=== PATIENT | male | born 1955 | race Caucasian/White ===

== ENCOUNTER → 2023-10-04 06:34 | Day surgery (SDC) | payer OTHER, SELFPAY | LOC: GI 06:34 | PROVIDERS: ATTENDING PHYSICIAN Internal Medicine Gastroenterology | DX: Z12.11 Encounter for screening for malignant neoplasm of colon (principal); D12.3 Benign neoplasm of transverse colon; D12.4 Benign neoplasm of descending colon; K57.30 Diverticulosis of large intestine without perforation or abscess without bleeding; K64.0 First degree hemorrhoids; K29.50 Unspecified chronic gastritis without bleeding; K22.89 Other specified disease of esophagus; K31.89 Other diseases of stomach and duodenum; K31.7 Polyp of stomach and duodenum; T18.2XXA Foreign body in stomach, initial encounter; Y83.1 Surgical operation with implant of artificial internal device as the cause of abnormal reaction of the patient, or of later complication, without mention of misadventure at the time of the procedure | CPT/HCPCS: 45380; 43239; 88305; 88342 ==

== ENCOUNTER → 2023-12-17 14:59 | Outpatient (REF) | payer OTHER, SELFPAY | LOC: HWRAD 14:59 | PROVIDERS: ATTENDING PHYSICIAN Internal Medicine Critical Care Medicine; FAMILY PHYSICIAN Family Medicine | DX: R91.1 Solitary pulmonary nodule (principal) | CPT/HCPCS: 71250 ==

== ENCOUNTER 2024-04-05 17:42 | Emergency (ER) | payer OTHER, MEDICARE, SELFPAY ==
[2024-04-05 17:43] VITALS: BP 179/95
--- NOTE | 2024-04-05 18:21 | ED.GENMED ---
History of Present Illness
General
Chief Complaint: Male Genito-Urinary Symptoms
Time Seen by Provider: 04/05/24 18:11
History of Present Illness
History of Present Illness:
68-year-old male presents to the emergency department for evaluation of urinary urgency, pelvic pressure, urinary dribbling, and dysuria for the past 2 days. Pain is maximized immediately after completing urination for approximately 30 minutes.
Denies any hematuria, fever, chills, sweats, or flank pain. No nausea vomiting or diarrhea.
Past History
Past History
ED Past Medical History: HTN and Other (Migraine headaches, hypertension,vfib arrest-s/p aicd-removed)
ED Past Surgical History: Cardiac (Prior AICD) and Other (Left inguinal herniorrhaphy)
Social History
Tobacco: Non-smoker
Alcohol: Occasional
Drug: None
Personal:
Living: with family
Employment: Employed
Family History
Family History: Other (Noncontributory)
Review of Systems
Review of Systems
Allergies reviewed?: Yes
All Other Systems: ROS reviewed and negative except as documented in HPI and ROS
Phy Exam
Physical Exam
Physical Exam:
GEN: Well appearing, NAD, WDWN
HEENT: Oral mucosa moist, no scleral icterus
Cardiac: Regular rate
Lung: No respiratory distress, no tachypnea
Abdomen: Soft, nontender
MSK: No gross deformity or injuries
Skin: Good color, no pallor or jaundice, no rashes
Neuro: AO x3, moves all extremities freely
Psych: Calm, cooperative
Course
Orders/Labs/Results
Orders:
Orders
04/05/24 19:18
Urinalysis Reflex To Culture Urgent
Date Specimen was Collected: 04/05/24
Time Specimen was Collected: 19:17
Urine Microscopic Reflex Cult Urgent
Urine Culture Urgent
NICOLE Source: U
Specimen Description:
Date Specimen was Collected: 04/05/24
Time Specimen was Collected: 19:17
04/05/24 20:34
Cefdinir [Omnicef] 300 mg PO NOW STA
Abnormal Lab Results
04/05/24
19:18
Leukocyte Esterase Rfl 1+ A
(Negative)
Urine Bacteria (Reflex) Few A
(Negative)
Vital Signs
Initial and Last Documented VS:
Initial Vital Signs
Temp Pulse Resp BP Pulse Ox
98.5 F 69 16 179/95 98
04/05/24 17:43 04/05/24 17:43 04/05/24 17:43 04/05/24 17:43 04/05/24 17:43
Last Documented Vital Signs
Temp Pulse Resp BP Pulse Ox
98.5 F 66 18 126/78 96
04/05/24 17:43 04/05/24 20:00 04/05/24 20:00 04/05/24 20:00 04/05/24 20:00
MDM/Problems Addressed
MDM/Problems Addressed:
Although patient's urinalysis shows few bacteria and no obvious other signs of UTI, his symptoms are clearly suspicious for UTI. Likely prostatitis given the urgency and urinary dribbling, postvoid bladder scan shows no retention. Will treat him
with third-generation cephalosporin for a 14-day course on the presumption of prostatitis, urine culture pending
*Critical Care Note
Total Time (30-74mins, 75-104mins- exclusive of procedures): Not Applicable
ED Attending Note
-
Portions of this chart may have been created with voice recognition software.� Occasional wrong word or��sound alike� substitutions may have occurred due to the inherent limitations of voice recognition software.
Discharge Plan
Departure
Patient Disposition: Home (Routine Discharge)
Date of Disposition: 04/05/24
Time of Disposition: 20:35
Patient with high blood pressure during this ER visit?: No
Discharge Problem:
Acute prostatitis
Instructions: Prostatitis (DC)
Prescriptions:
New
cefdinir 300 mg capsule
300 mg PO Q12H 14 Days Qty: 28 0RF
No Action
multivitamin with folic acid [Tab-A-Andrew] 1 TABLET tablet
1 tab PO DAILY
acetaminophen [Tylenol] 325 mg Tablet
325 mg PO DAILYPRN PRN (Reason: mild pain)
labetalol 300 mg Tablet
150 mg PO BID
pantoprazole 40 mg Tablet,Delayed Release (Dr/Ec)
40 mg PO BID
cholecalciferol (vitamin D3) 250 mcg (10,000 unit) Tablet
250 mcg PO DAILY
amoxicillin-pot clavulanate 875-125 mg Tablet
1 tab PO BID Qty: 25 0RF
oxycodone 5 mg tablet
5 mg PO Q8H PRN (Reason: severe pain) Qty: 7 0RF
Referrals:
Kadeem Trammell, DO [Family Provider] -
Interventions
Interventions:
*Risk Screen - Suicide Last Done: 04/05/24 17:43
*General Assessment Last Done: 04/05/24 17:43
*Neglect/Abuse Screening Last Done: 04/05/24 17:43
ED- Fall Risk Assessment Last Done: 04/05/24 19:30
*ED COVID-19 Vaccine History Last Done: 04/05/24 19:30
*Nursing Disposition Last Done: 04/05/24 21:47
ED-Male Genitourinary Assessment Last Done: 04/05/24 19:30
Discharge Date and Time
Discharge Date/Time: 04/05/24 21:00
Print Language: URDU
[2024-04-05 20:00] VITALS: BP 126/78
[2024-04-05 20:07] LABS: Urine Albumin Negative (Neg - Trace); Urine Bilirubin Negative (Negative); Urine Character Clear (Clear); Urine Color Yellow; Urine Glucose Negative (Negative); Urine Ketone Negative (Negative); Urine Leukocyte 1+ (Negative); Urine Nitrite Negative (Negative); Urine Occult Blood Negative (Negative); Urine Urobilinogen Negative (Neg - 1+); Urine pH 6.5 (5.0-9.0)
[2024-04-05 20:32] LABS: Urine Bacteria Few (Negative); Urine Squamous Cell 0-2 /LPF (Few)
[2024-04-05 20:33] LABS: Urine Red Blood Cell 0-2 /HPF (0-2)
[2024-04-05] MEDS: OMNICEF 300 MG PO (21:16)
== END 2024-04-05 21:00 | disposition home or self-care (01) ==
LOC: EMR 17:42
PROVIDERS: Physician Assistant; EMERGENCY PHYSICIAN Emergency Medicine; FAMILY PHYSICIAN Family Medicine
DX: N41.0 Acute prostatitis (principal); I10 Essential (primary) hypertension; Z95.810 Presence of automatic (implantable) cardiac defibrillator
CPT/HCPCS: 99282; 81003; 81015; 87086

== ENCOUNTER → 2024-05-06 12:15 | Outpatient (REF) | payer OTHER, SELFPAY ==
[2024-05-06 16:39] LABS: % Basophils 0.7 % (0-2); % Eosinophils 1.7 % (0-6); % Immature Granulocytes 0.6 % (0-0.5); % Monocytes 10.9 % (1.7-9.3); % Neutrophils 55.1 % (42.2-75.2); Absolute Basophils 0.1 10^3/uL (0-0.2); Absolute Eosinophils 0.1 10^3/uL (0-0.7); Absolute Lymphocytes 2.2 10^3/uL (1.2-3.4); Absolute Monocytes 0.8 10^3/uL (0.1-0.6); Absolute Neutrophils 3.9 10^3/uL (1.4-6.5); Hematocrit 42.9 % (39.0-52.0); Hemoglobin 15.4 g/dL (13.0-18.0); Mean Corp Hgb Conc. 35.9 g/dL (33.0-37.0); Mean Corpuscular Hgb 30.6 pg (27.0-31.0); Mean Corpuscular Volume 85.1 fL (80.0-94.0); Nucleated Red Blood Cells % 0 % (-); Platelet Count 320 10^3/uL (130-400); Red Blood Cell Count 5.04 10^6/uL (4.70-6.10); Red Cell Dist. Width 12.3 % (11.5-14.5); White Blood Cell Count 7.2 10^3/uL (4.8-10.8)
[2024-05-06 16:47] LABS: ALT (SGPT) 23 U/L (0-50); AST (SGOT) 29 U/L (17-59); Alkaline Phosphatase 78 U/L (38-126); Amylase 51 U/L (30-110); Blood Urea Nitrogen 19 mg/dl (9-20); Carbon Dioxide 24 mmol/L (22-30); Chloride 98 mmol/L (98-107); Glucose 90 mg/dl (70-99); HDL Cholesterol 44 mg/dl; Lipase 64 U/L (23-300); Potassium 3.8 mmol/L (3.5-5.1); Sodium 139 mmol/L (135-145); Total Cholesterol 226 mg/dl (50-199); Total Protein 7.6 g/dl (6.3-8.2); eGFR > 60.00
[2024-05-06 16:50] LABS: Triglyceride 425 mg/dl (10-149)
[2024-05-06 17:13] LABS: LDL Cholesterol, Direct 126 mg/dl
[2024-05-06 17:17] LABS: PSA, Total - Screen 2.44 ng/ml (0.0-4.0); TSH Reflex To Free T4 1.12 uIU/ml (0.47-4.68)
[2024-05-07 08:21] LABS: Glycohemoglobin (HgbA1c) 5.1 % (4.0-5.6)
== END ==
LOC: HWLAB 12:15
PROVIDERS: ATTENDING PHYSICIAN Family Medicine
DX: R30.0 Dysuria (principal); Z00.01 Encounter for general adult medical examination with abnormal findings; R73.09 Other abnormal glucose; R10.12 Left upper quadrant pain
CPT/HCPCS: 36415; 80053; 80061; 82150; 83036; 83690; 83721; 84443; 85025; G0103

== ENCOUNTER 2024-12-24 13:26 | Inpatient (IN) | payer OTHER, SELFPAY ==
[2024-12-24 09:24] VITALS: BP 157/82
[2024-12-24 10:04] VITALS: BMI 33.1
[2024-12-24] MEDS: DILAUDID 1 MG IV ×5 (10:05→23:26)
--- NOTE | 2024-12-24 10:05 | ED.GENMED ---
History of Present Illness
General
Chief Complaint: Abdominal Pain
Time Seen by Provider: 12/24/24 09:50
History of Present Illness
History of Present Illness:
69-year-old male with prior history of diverticulitis and hypertension presenting for left-sided abdominal pain. Reports pain for the past 2 days. Feels that pain is consistent with prior episodes of diverticulitis, however feels worse than usual.
He took 2 doses of Augmentin that he had at home without any significant relief. Denies nausea or vomiting. Denies fever. Denies any bowel surgeries in the past. Denies any urinary complaints. Denies chest pain or difficulty breathing. Denies
additional acute medical complaints
Past History
Past History
ED Past Medical History: HTN and Other (Migraine headaches, hypertension,vfib arrest-s/p aicd-removed)
ED Past Surgical History: Cardiac (Prior AICD) and Other (Left inguinal herniorrhaphy)
Social History
Tobacco: Non-smoker
Alcohol: Occasional
Drug: None
Personal:
Living: with family
Employment: Employed
Family History
Family History: Other (Noncontributory)
Phy Exam
Physical Exam
Physical Exam:
General: Well-appearing, no clinical signs of dehydration, nontoxic and in no acute distress
HEENT: protecting airway
Neck: appears supple
CV: Normal heart rate, regular rhythm
Resp: No accessory muscle use
Abd: Soft and non-distended, focal tenderness to the left lower quadrant without rebound or guarding
Extremities: No deformities, no swelling
Neuro: alert, no focal neurologic deficit
: deferred
Rectal: deferred
Psych: Normal affect
Skin: Intact
Course
Orders/Labs/Results
Orders:
Orders
12/24/24 09:58
CT Abd/pelvis W Iv Cont Urgent
Comment:
Reason For Exam: LLQ pain, hx diverticulitis
HYDROmorphone [Dilaudid] 1 mg IV NOW STA
12/24/24 10:04
Complete Blood Count/With Diff Urgent
Comprehensive Metabolic Panel Urgent
Lipase Urgent
12/24/24 10:56
Urinalysis Reflex To Culture Urgent
Date Specimen was Collected: 12/24/24
Time Specimen was Collected: 10:52
12/24/24 12:26
HYDROmorphone [Dilaudid] 1 mg IV NOW STA
Abnormal Lab Results
12/24/24
10:04
WBC 11.0 H 10^3/uL
(4.8-10.8)
Absolute Neuts (auto) 8.6 H 10^3/uL
(1.4-6.5)
Absolute Monos (auto) 0.8 H 10^3/uL
(0.1-0.6)
Neutrophils % 78.0 H %
(42.2-75.2)
Lymphocytes % 13.1 L %
(20.5-51.1)
Glucose 121 H mg/dl
(70-99)
12/24/24 10:04
12/24/24 10:04
Vital Signs
Initial and Last Documented VS:
Initial Vital Signs
Temp Pulse Resp BP Pulse Ox
98.0 F 73 16 157/82 98
12/24/24 09:24 12/24/24 09:24 12/24/24 09:24 12/24/24 09:24 12/24/24 09:24
Last Documented Vital Signs
Temp Pulse Resp BP Pulse Ox
98.0 F 73 16 157/82 98
12/24/24 09:24 12/24/24 09:24 12/24/24 09:24 12/24/24 09:24 12/24/24 09:24
MDM/Problems Addressed
MDM/Problems Addressed:
69-year-old male with history of diverticulitis presenting for 2 days of left lower quadrant abdominal pain. Vital signs are significant for mild hypertension.
On exam patient resting comfortably, no acute distress, nontoxic. Focal tenderness to the left lower quadrant without rebound or guarding. Symptoms appear most consistent with acute diverticulitis, given prior history and location of pain.
Patient notes pain is worse than usual. For this reason we will proceed with laboratory analysis and CT imaging to ensure no complicating features. Patient requesting Dilaudid for pain. Will give.
12:50 -CT shows uncomplicated diverticulitis. Patient is still having significant pain, given additional dose of Dilaudid. Will admit for pain control, failure of outpatient therapy. Will start IV antibiotics.
*Critical Care Note
Total Time (30-74mins, 75-104mins- exclusive of procedures): Not Applicable
ED Attending Note
-
Portions of this chart may have been created with voice recognition software.� Occasional wrong word or��sound alike� substitutions may have occurred due to the inherent limitations of voice recognition software.
Discharge Plan
Departure
Prescriptions:
No Action
multivitamin with folic acid [Tab-A-Andrew] 1 TABLET tablet
1 tab PO DAILY
acetaminophen [Tylenol] 325 mg Tablet
325 mg PO DAILYPRN PRN (Reason: mild pain)
labetalol 300 mg Tablet
150 mg PO BID
pantoprazole 40 mg Tablet,Delayed Release (Dr/Ec)
40 mg PO BID
cholecalciferol (vitamin D3) 250 mcg (10,000 unit) Tablet
250 mcg PO DAILY
amoxicillin-pot clavulanate 875-125 mg Tablet
1 tab PO BID Qty: 25 0RF
oxycodone 5 mg tablet
5 mg PO Q8H PRN (Reason: severe pain) Qty: 7 0RF
cefdinir 300 mg capsule
300 mg PO Q12H 14 Days Qty: 28 0RF
Referrals:
Kadeem Trammell, DO [Family Provider] -
Interventions
Interventions:
*Risk Screen - Suicide Last Done: 12/24/24 09:24
*Neglect/Abuse Screening Last Done: 12/24/24 09:24
*ED COVID-19 Vaccine History Last Done: 12/24/24 12:37
UJ-Zfmzym-Uyupedxtgx Assessment Last Done: 12/24/24 12:37
Discharge Date and Time
Print Language: ARMENIAN
[2024-12-24 10:24] LABS: % Basophils 0.4 % (0-2); % Eosinophils 0.5 % (0-6); % Immature Granulocytes 0.3 % (0-0.5); % Lymphocytes 13.1 % (20.5-51.1); % Monocytes 7.7 % (1.7-9.3); Absolute Eosinophils 0.1 10^3/uL (0-0.7); Absolute Lymphocytes 1.4 10^3/uL (1.2-3.4); Absolute Monocytes 0.8 10^3/uL (0.1-0.6); Absolute Neutrophils 8.6 10^3/uL (1.4-6.5); Hematocrit 41.6 % (39.0-52.0); Hemoglobin 15.3 g/dL (13.0-18.0); Mean Corp Hgb Conc. 36.8 g/dL (33.0-37.0); Mean Corpuscular Hgb 30.8 pg (27.0-31.0); Mean Corpuscular Volume 83.7 fL (80.0-94.0); Mean Platelet Volume 8.6 fL (7.4-10.4); Nucleated Red Blood Cells % 0 % (-); Platelet Count 270 10^3/uL (130-400); Red Blood Cell Count 4.97 10^6/uL (4.70-6.10); Red Cell Dist. Width 12.4 % (11.5-14.5)
[2024-12-24 10:39] LABS: ALT (SGPT) 21 U/L (0-50); AST (SGOT) 22 U/L (17-59); Albumin 4.7 g/dl (3.5-5.0); Alkaline Phosphatase 71 U/L (38-126); Blood Urea Nitrogen 15 mg/dl (9-20); Calcium 9.9 mg/dl (8.4-10.2); Carbon Dioxide 27 mmol/L (22-30); Chloride 104 mmol/L (98-107); Estimated Creatinine Clearance 101 ml/min; Glucose 121 mg/dl (70-99); Lipase 53 U/L (23-300); Potassium 3.6 mmol/L (3.5-5.1); Sodium 140 mmol/L (135-145); Total Bilirubin 1.3 mg/dl (0.2-1.3); Total Protein 7.6 g/dl (6.3-8.2); eGFR > 60.00
[2024-12-24 11:11] LABS: Urine Albumin Negative (Neg - Trace); Urine Bilirubin Negative (Negative); Urine Character Clear (Clear); Urine Color Yellow; Urine Glucose Negative (Negative); Urine Ketone Negative (Negative); Urine Leukocyte Negative (Negative); Urine Nitrite Negative (Negative); Urine Occult Blood Negative (Negative); Urine Urobilinogen Negative (Neg - 1+); Urine pH 6.5 (5.0-9.0)
--- NOTE | 2024-12-24 13:06 | HPS.HSE ---
Family Physician
-
Family Physician: Kadeem Trammell
Chief Complaint
-
Abdominal pain
History of Present Illness
Patient 69 years old male with history of GI bleed, diverticulosis with several episodes of diverticulitis, hypertension, came into the hospital with abdominal pain. Patient tells me that he started having abdominal pain yesterday diffuse but
mostly in the left lower quadrant, moderate to severe intensity peaking 8 out of 10, constant, not associated with nausea or vomiting. Patient pain persisted and could not sleep well. When he started having the pain he felt this was similar to his
episodes of diverticulitis so he started taking Augmentin and he started altering his diet. He denies fevers or chills. He did have bowel movement yesterday normal stools at first and then followed by soft and watery stools. He denies any melena,
hematochezia, bright blood per rectum, or hematemesis. He has seen GI (Dr. Huff) as outpatient per patient report and he had a colonoscopy and an upper endoscopy just about a year ago from an episode of GI bleed. In the ER he had a white count
of 11, CT scan of the abdomen and pelvis consistent with diverticulitis of the distal descending colon. He was given antibiotics. He was referred to hospitalist service for further evaluation.
Medical History
Past Medical History
Past Medical History: Reports Other
Additional Past Medical History:
Hypertension
GI bleed 1 month ago requiring multiple units of PRBCs, IR embolization of left gastric artery 04/27
Diverticular Disease
V-Fib Arrest
Cervical DDD
Past Surgical History: Reports Other
Additional Past Surgical History:
AICD Placement / Removal
Lipoma Excision
Herniorrhaphy
Social History
Tobacco: Non-smoker
Alcohol: None
Drug: None
Personal:
Living: With Family
Family History
Family History: Not pertinent
Allergies / Home Medications
Allergies reflects when Allergies were last updated in [email or web address].
Home Medications with original date entered in [email or web address]
Allergy/Medication List:
Allergies
Allergy/AdvReac Type Severity Reaction Status Date / Time
Antihistamines Allergy Unknown Verified 12/24/24 09:25
hydroxyzine Allergy Unknown Verified 12/24/24 09:25
omeprazole [From Prilosec] Allergy Unknown - Verified 12/24/24 09:25
tolerates
pantoprazole
phenytoin sodium Allergy Unknown Verified 12/24/24 09:25
[From Dilantin]
promethazine Allergy Unknown Verified 12/24/24 09:25
tramadol Allergy Anaphylaxis Verified 12/24/24 09:25
Home Medications
multivitamin with folic acid 400 mcg tablet (Tab-A-Andrew) 1 tab PO DAILY Supplement 07/04/17
acetaminophen 325 mg tablet (Tylenol) 325 mg PO DAILYPRN PRN mild pain 04/02/23
labetalol 300 mg tablet 150 mg PO BID Blood Pressure 04/02/23
cholecalciferol (vitamin D3) 250 mcg (10,000 unit) tablet 250 mcg PO DAILY Supplement 05/13/23
pantoprazole 40 mg tablet,delayed release 40 mg PO BID Gastrointestinal Issue 05/13/23
amoxicillin 875 mg-potassium clavulanate 125 mg tablet 1 tab PO BID #25 tabs 05/22/23
oxycodone 5 mg tablet 5 mg PO Q8H PRN severe pain #7 tabs 05/22/23
cefdinir 300 mg capsule 300 mg PO Q12H 14 days #28 caps 04/05/24
Review of Systems
-
A 12 point ROS was completed and negative except as noted: Yes
Physical Exam
Vital Signs
Vital Signs
Temp Pulse Resp BP Pulse Ox
98.0 F 73 16 157/82 98
12/24/24 09:24 12/24/24 09:24 12/24/24 09:24 12/24/24 09:24 12/24/24 09:24
Physical exam:
General: Acutely ill
HEENT: Normocephalic, Atraumatic and dry Mucous Membranes
Respiratory: Clear to Auscultation; Negative Wheezes, Rales or Rhonchi
Cardiac: Regular Rhythm and S1/S2
GI: Soft, tender diffusely and mainly in the left lower quadrant and Nondistended
Musculoskeletal: No Clubbing, No Cyanosis and No Edema
Neuro: Awake, Alert and Oriented, no gross neurological deficits
Psych: Calm
Physical Exam
General: Other
Laboratory Results
-
12/24/24 10:04
12/24/24 10:04
Laboratory Results
Total Bilirubin 1.3 mg/dl (0.2-1.3) 12/24/24 10:04
AST 22 U/L (17-59) 12/24/24 10:04
ALT 21 U/L (0-50) 12/24/24 10:04
Alkaline Phosphatase 71 U/L (38-126) 12/24/24 10:04
Lipase 53 U/L (23-300) 12/24/24 10:04
Data Reviewed
-
CT Scan: Image Personally Visualized and interpreted
Lab Data: Labs Reviewed by me
Impression/Plan
-
IMPRESSION:
Patient is 69 years old male came into the hospital with abdominal pain and found to have acute recurrent diverticulitis. Patient at increased risk of increased of morbidity and mortality therefore he will need to be treated in the and monitor
accordingly.
PLAN:
Acute recurrent diverticulitis:
Failed outpatient treatment arguably since he only took 2 days worth of antibiotics.
Keep n.p.o.
Trial of clear liquid diet tomorrow if improving
Maintenance IV fluids
Continue antibiotics, IV ceftriaxone and IV metronidazole.
Pain control
Seen and reviewed CT scan of the abdomen pelvis with acute distal complicated diverticulitis.
Hypertension:
Continue home antihypertensives including labetalol 300 mg twice a day and indapamide 2.5 mg p.o. daily
Add holding parameters to his medications
Monitor blood pressure and adjust medications accordingly
History of cardiac arrest in the past:
Per records it was ventricular fibrillation but patient tells me after cardiology review it was determined to be side effect of medication, tramadol and cardiac device explanted except wires.
History of GI bleed:
History massive GI bleed 03/27 s/p IR embolization of left gastric artery followed by scope by GI.
DVT prophylaxis:
Lovenox SQ
CODE STATUS:
Full code
Time spent total 75 minutes
[2024-12-24] MEDS: ROCEPHIN 1000 MG IV (13:19)
[2024-12-24] MEDS: FLAGYL 500 MG 100 IV ×2 (13:20→20:01)
[2024-12-24 15:00] VITALS: BP 162/91
[2024-12-24] MEDS: LR 1000 IV (16:17)
[2024-12-24] MEDS: LOVENOX 40 MG SC (16:18)
[2024-12-24 16:21] VITALS: BMI 32.2
[2024-12-24] MEDS: TRANDATE 300 MG PO (20:01)
[2024-12-24 22:46] VITALS: BP 136/75
[2024-12-25] MEDS: DILAUDID 1 MG IV ×7 (02:43→22:34)
[2024-12-25] MEDS: FLAGYL 500 MG 100 IV ×3 (03:54→19:26)
[2024-12-25] MEDS: LR 1000 IV (05:44)
[2024-12-25 06:34] LABS: % Basophils 0.6 % (0-2); % Eosinophils 0.6 % (0-6); % Immature Granulocytes 0.3 % (0-0.5); % Monocytes 11.3 % (1.7-9.3); % Neutrophils 63.2 % (42.2-75.2); Absolute Basophils 0.1 10^3/uL (0-0.2); Absolute Eosinophils 0.1 10^3/uL (0-0.7); Absolute Lymphocytes 2.2 10^3/uL (1.2-3.4); Absolute Neutrophils 5.7 10^3/uL (1.4-6.5); Hematocrit 39.3 % (39.0-52.0); Hemoglobin 14.3 g/dL (13.0-18.0); Mean Corp Hgb Conc. 36.4 g/dL (33.0-37.0); Mean Corpuscular Hgb 30.8 pg (27.0-31.0); Mean Corpuscular Volume 84.5 fL (80.0-94.0); Mean Platelet Volume 8.8 fL (7.4-10.4); Nucleated Red Blood Cells % 0 % (-); Platelet Count 272 10^3/uL (130-400); Red Blood Cell Count 4.65 10^6/uL (4.70-6.10); Red Cell Dist. Width 12.4 % (11.5-14.5)
[2024-12-25 06:56] LABS: Blood Urea Nitrogen 12 mg/dl (9-20); Calcium 9.4 mg/dl (8.4-10.2); Carbon Dioxide 32 mmol/L (22-30); Chloride 103 mmol/L (98-107); Estimated Creatinine Clearance 88 ml/min; Glucose 98 mg/dl (70-99); Potassium 4.2 mmol/L (3.5-5.1); Sodium 140 mmol/L (135-145); eGFR > 60.00
[2024-12-25 07:00] VITALS: BP 149/81
[2024-12-25] MEDS: TRANDATE 300 MG PO ×2 (08:28→19:25)
[2024-12-25] MEDS: ROCEPHIN 1000 MG IV (08:28)
[2024-12-25] MEDS: LOZOL 2.5 MG PO (08:28)
[2024-12-25] MEDS: FLUSH (NSS) 1 FLUSH IV ×2 (08:28)
[2024-12-25] MEDS: STERILE WATER FOR INJECTION 10 ML IV (08:28)
--- NOTE | 2024-12-25 11:07 | W.PN.HOSP.TC ---
Today's Communication/Plan
-
Start diet. Antibiotics.
Assessment / Plan
Assessment / Plan
Physical exam:
General: Well Developed, Well Nourished and No Apparent Distress
HEENT: Normocephalic, Atraumatic and Moist Mucous Membranes
Respiratory: Clear to Auscultation; Negative Wheezes, Rales or Rhonchi
Cardiac: Regular Rhythm and S1/S2
GI: Soft, tender but much less than yesterday and Nondistended
Musculoskeletal: No Clubbing, No Cyanosis and No Edema
Neuro: Awake, Alert and Oriented
Psych: Calm
A/P:
Acute recurrent diverticulitis:
Improving
Start clear liquid diet today and advance as tolerated
Stop IV fluid
Continue antibiotics, IV ceftriaxone and IV metronidazole.
Hypertension:
Continue home antihypertensives including labetalol 300 mg twice a day and indapamide 2.5 mg p.o. daily
History of cardiac arrest in the past:
Per records it was ventricular fibrillation but patient tells me after cardiology review it was determined to be side effect of medication, tramadol and cardiac device explanted except wires.
History of GI bleed:
History massive GI bleed 03/27 s/p IR embolization of left gastric artery followed by scope by GI.
DVT prophylaxis:
Lovenox SQ
CODE STATUS:
Full code
Anticipated Discharge: 24 - 48 hours
Subjective/Interval History
-
Date of Service: December 25, 2024
Patient feels better in terms of his pain today. No nausea or vomiting. Afebrile
Objective Data
-
Labs:
Laboratory Results
12/25/24
06:11
WBC 9.0
Hgb 14.3
Hct 39.3
Plt Count 272
Sodium 140
Potassium 4.2
Chloride 103
Carbon Dioxide 32 H
BUN 12
Creatinine 0.9
Glucose 98
Calcium 9.4
Vital Signs:
Vital Signs
Temp Pulse Resp BP Pulse Ox
98.7 F 68 17 149/81 96
12/25/24 07:00 12/25/24 07:00 12/25/24 07:00 12/25/24 07:00 12/25/24 07:00
I&O
12/24/24 12/25/24 12/26/24
06:59 06:59 06:59
Output Total 300 / 300
Balance -300 / -300
--- NOTE | 2024-12-25 14:56 | CM ---
Patient seen bedside, initial assessment completed. Patient 69 years old male with history of GI bleed, diverticulosis with several episodes of diverticulitis, hypertension, came into the hospital with abdominal pain.
Patient resides w/ spouse in a [facility]- no steps. Independent in all areas, no DME reported. Denies SNF/HC hx reported. On IV abx.
Address, point of contact and insurance verified
PCP: Kadeem Trammell
Pharmacy: [facility]
Plan: Home, no needs anticipated
[2024-12-25 15:00] VITALS: BP 140/86
[2024-12-25] MEDS: LOVENOX 40 MG SC (16:16)
[2024-12-25 23:40] VITALS: BP 133/72
[2024-12-26] MEDS: DILAUDID 1 MG IV ×5 (01:36→14:51)
[2024-12-26] MEDS: FLAGYL 500 MG 100 IV ×2 (04:19→11:09)
[2024-12-26 07:00] VITALS: BP 178/89
[2024-12-26 07:11] LABS: % Basophils 0.9 % (0-2); % Eosinophils 1.6 % (0-6); % Immature Granulocytes 0.6 % (0-0.5); % Lymphocytes 27.5 % (20.5-51.1); % Monocytes 12.2 % (1.7-9.3); % Neutrophils 57.2 % (42.2-75.2); Absolute Basophils 0.1 10^3/uL (0-0.2); Absolute Eosinophils 0.1 10^3/uL (0-0.7); Absolute Lymphocytes 1.9 10^3/uL (1.2-3.4); Absolute Monocytes 0.9 10^3/uL (0.1-0.6); Hematocrit 40.4 % (39.0-52.0); Hemoglobin 14.5 g/dL (13.0-18.0); Mean Corp Hgb Conc. 35.9 g/dL (33.0-37.0); Mean Corpuscular Hgb 30.7 pg (27.0-31.0); Mean Corpuscular Volume 85.4 fL (80.0-94.0); Mean Platelet Volume 8.9 fL (7.4-10.4); Nucleated Red Blood Cells % 0 % (-); Platelet Count 269 10^3/uL (130-400); Red Blood Cell Count 4.73 10^6/uL (4.70-6.10); Red Cell Dist. Width 12.3 % (11.5-14.5); White Blood Cell Count 6.9 10^3/uL (4.8-10.8)
[2024-12-26] MEDS: FLUSH (NSS) 1 FLUSH IV ×2 (07:40→07:41)
[2024-12-26 07:41] LABS: Blood Urea Nitrogen 12 mg/dl (9-20); Calcium 9.2 mg/dl (8.4-10.2); Carbon Dioxide 26 mmol/L (22-30); Chloride 104 mmol/L (98-107); Estimated Creatinine Clearance 99 ml/min; Glucose 92 mg/dl (70-99); Potassium 3.7 mmol/L (3.5-5.1); Sodium 140 mmol/L (135-145); eGFR > 60.00
[2024-12-26] MEDS: STERILE WATER FOR INJECTION 10 ML IV (07:41)
[2024-12-26] MEDS: TRANDATE 300 MG PO (07:41)
[2024-12-26] MEDS: ROCEPHIN 1000 MG IV (07:41)
[2024-12-26] MEDS: LOZOL 2.5 MG PO (07:41)
[2024-12-26 11:00] VITALS: BP 141/80
--- NOTE | 2024-12-26 12:02 | W.PN.HOSP.TC ---
Addendum entered and electronically signed by Juan Carlos Olvera MD 12/26/24 16:47:
Patient improving and wants to go home. Came back and reevaluated the patient. If able to tolerate low residue diet he can go home tonight-discharge paperwork ready.
Original Note:
Today's Communication/Plan
-
Antibiotics. Advance diet
Assessment / Plan
Assessment / Plan
Physical exam:
General: Well Developed, Well Nourished and No Apparent Distress
HEENT: Normocephalic, Atraumatic and Moist Mucous Membranes
Respiratory: Clear to Auscultation; Negative Wheezes, Rales or Rhonchi
Cardiac: Regular Rhythm and S1/S2
GI: Soft, tender but much less than yesterday and Nondistended
Musculoskeletal: No Clubbing, No Cyanosis and No Edema
Neuro: Awake, Alert and Oriented
Psych: Calm
A/P:
Acute recurrent diverticulitis:
Improving
Advance to full liquid diet today and might be able to advance either later this evening or tomorrow
Off IV fluid
Continue antibiotics, IV ceftriaxone and IV metronidazole.
Hypertension:
Continue home antihypertensives including labetalol 300 mg twice a day and indapamide 2.5 mg p.o. daily
Add IV hydralazine as needed
History of cardiac arrest in the past:
Per records it was ventricular fibrillation but patient tells me after cardiology review it was determined to be side effect of medication, tramadol and cardiac device explanted except wires.
History of GI bleed:
History massive GI bleed 03/27 s/p IR embolization of left gastric artery followed by scope by GI.
DVT prophylaxis:
Lovenox SQ
CODE STATUS:
Full code
Anticipated Discharge: Within 24 hours
Subjective/Interval History
-
Date of Service: December 26, 2024
Patient still having pain but continues to improve. Afebrile
Objective Data
-
Labs:
Laboratory Results
12/26/24
05:54
WBC 6.9
Hgb 14.5
Hct 40.4
Plt Count 269
Sodium 140
Potassium 3.7
Chloride 104
Carbon Dioxide 26
BUN 12
Creatinine 0.8
Glucose 92
Calcium 9.2
Vital Signs:
Vital Signs
Temp Pulse Resp BP Pulse Ox
98.1 F 62 16 141/80 98
12/26/24 11:00 12/26/24 11:00 12/26/24 11:00 12/26/24 11:00 12/26/24 11:00
I&O
12/25/24 12/26/24 12/27/24
06:59 06:59 06:59
Intake Total 680 / 680
Output Total 300 / 300 400 / 400
Balance -300 / -300 -400 / -400 680 / 680
[2024-12-26 15:00] VITALS: BP 154/83
--- NOTE | 2024-12-26 15:36 | W.DCSUMMARY ---
Discharge Summary
Discharge Data
Date of Admission: 12/24/24
Date of Discharge: 12/26/24
Total time spent discharging patient (in min): 33
-
Pending Results: No
Hospital Course
Patient is 69 years old male with past medical history of hypertension, diverticular disease in the past, presented to the hospital with abdominal pain and acute recurrent diverticulitis. Patient was started on IV antibiotics and IV fluids and kept
NPO. He was started on diet the following day and his fluids were discontinued. He has been advancing his diet slowly and he has noticed improvement clinically. Patient is hemodynamically stable, able to tolerate low residue diet and eager to go
home today. Patient will be discharged in stable condition today.
Discharge duration: 33 minutes
Discharge Plan
-
Patient Disposition: Home (Routine Discharge)
Discharge Diagnosis/Procedures: Acute uncomplicated diverticulitis
Diet: Low Cholesterol and Low Residue
Activity: As tolerated
Blood Work: Please PCP to order CBC, BMP within 1 week
Referrals:
Kadeem Trammell, DO [Family Provider] - in less than 1 week
Prescriptions:
Continued
multivitamin with folic acid [Tab-A-Andrew] 1 TABLET tablet
1 tab PO DAILY
acetaminophen [Tylenol] 325 mg Tablet
325 mg PO DAILYPRN PRN (Reason: mild pain)
labetalol 300 mg Tablet
300 mg PO BID
indapamide 2.5 mg Tablet
2.5 mg PO DAILY
cholecalciferol (vitamin D3) [Vitamin D3] 25 mcg (1,000 unit) Tablet
25 mcg PO DAILY
Discharge Date and Time
Print Language: MACEDONIAN
--- NOTE | 2024-12-26 16:09 | CM ---
Home no needs.
Plan; Home no needs.
[2024-12-26] MEDS: AUGMENTIN 875 MG/125 MG 1 TABLET PO (17:03)
== END 2024-12-26 18:12 | disposition home or self-care (01) | DRG 392 ==
LOC: 4 WEST ACU 13:26
PROVIDERS: ADMITTING PHYSICIAN Hospitalist; EMERGENCY PHYSICIAN Student in an Organized Health Care Education/Training Program; FAMILY PHYSICIAN Family Medicine
DX: K57.32 Diverticulitis of large intestine without perforation or abscess without bleeding (principal); I10 Essential (primary) hypertension; G43.909 Migraine, unspecified, not intractable, without status migrainosus; M50.30 Other cervical disc degeneration, unspecified cervical region; Z86.74 Personal history of sudden cardiac arrest; Z87.19 Personal history of other diseases of the digestive system; Z88.5 Allergy status to narcotic agent; Z88.8 Allergy status to other drugs, medicaments and biological substances
CPT/HCPCS: 74177; 80048; 80053; 81003; 83690; 85025; 96365; 96375; 96376; 99284; Q9967

== ENCOUNTER 2025-05-14 11:05 | Inpatient (IN) | payer OTHER, MEDICARE, SELFPAY ==
[2025-05-13 18:16] VITALS: BP 129/76
[2025-05-13 18:31] LABS: Hematocrit 41.7 % (39.0-52.0); Hemoglobin 14.9 g/dL (13.0-18.0); Mean Corp Hgb Conc. 35.7 g/dL (33.0-37.0); Mean Corpuscular Volume 84.4 fL (80.0-94.0); Nucleated Red Blood Cells % 0 % (-); Platelet Count 294 10^3/uL (130-400); Red Cell Dist. Width 12.5 % (11.5-14.5)
[2025-05-13 18:50] LABS: ALT (SGPT) 21 U/L (0-50); AST (SGOT) 22 U/L (17-59); Albumin 4.9 g/dl (3.5-5.0); Alkaline Phosphatase 77 U/L (38-126); Blood Urea Nitrogen 17 mg/dl (9-20); Calcium 9.5 mg/dl (8.4-10.2); Carbon Dioxide 29 mmol/L (22-30); Chloride 99 mmol/L (98-107); Glucose 110 mg/dl (70-99); Lipase 62 U/L (23-300); Potassium 3.6 mmol/L (3.5-5.1); Sodium 137 mmol/L (135-145); Total Protein 7.7 g/dl (6.3-8.2); eGFR > 60.00
--- NOTE | 2025-05-13 20:32 | ED.GENMED ---
History of Present Illness
General
Chief Complaint: Abdominal Pain
Source: patient
Exam Limitations: none
Time Seen by Provider: 05/13/25 20:25
Nursing documentation reviewed up to this point in time: agreed with
History of Present Illness
History of Present Illness:
Patient to ED with report of worsening lower abd pain. He has a history of diverticulitis and reports his symptoms are consistent with symptoms in the past. He started self o AUgmentin on Saturday. He has had 4 doses without imrovement. Brought
self to ED for eval. Denies fever/chills
Past History
Past History
ED Past Medical History: HTN and Other (Migraine headaches, hypertension,vfib arrest-s/p aicd-removed)
ED Past Surgical History: Cardiac (Prior AICD) and Other (Left inguinal herniorrhaphy)
Social History
Tobacco: Non-smoker
Alcohol: Occasional
Drug: None
Personal:
Living: with family
Employment: Employed
Family History
Family History: Other (Noncontributory)
Review of Systems
Review of Systems
Allergies reviewed?: Yes
All Other Systems: ROS reviewed and negative except as documented in HPI and ROS
Constitutional: Reports no symptoms
EENT: Reports no symptoms
Respiratory: Reports no symptoms
Cardiac: Reports no symptoms
ABD/GI: Reports abdominal pain (lower abd pain )
: Reports no symptoms
Musculoskeletal: Reports no symptoms
Skin: Reports no symptoms
Neurological: Reports no symptoms
Psychiatric: Reports no symptoms
Phy Exam
General Physical Exam
General Presentation: moderate distress
General age: appears stated age
General Skin: warm and dry
General Habitus: normal
General Mental: alert
Cardiovascular Exam
Cardiovascular Exam: regular rate/rhythm and no edema
Gastrointestinal Exam
Gastrointestinal Exam: normal bowel sounds, soft, no organomegaly, no pulsatile mass and non distended
Palpation: left upper quadrant: No tenderness, left lower quadrant: Moderate tenderness, right upper quadrant: No tenderness and right lower quadrant: Mild tenderness
Musculoskeletal Exam
Musculoskeletal Exam: full ROM and neuro vasc intact
Skin Exam
Skin Exam: normal color, warm/dry and no rash
Psychiatric Exam
Psychiatric Exam: normal mood/affect
Course
Orders/Labs/Results
Orders:
Orders
05/13/25 18:25
Complete Blood Count/With Diff Urgent
Comprehensive Metabolic Panel Urgent
Lipase Urgent
05/13/25 20:31
CT Abd/pelvis W Iv Cont Urgent
Comment:
Reason For Exam: lower abd pain
0.9% Sodium Chloride 1000 ml [Nss] 1,000 ml IV BOLUS
HYDROmorphone [Dilaudid] 1 mg IV NOW STA
05/13/25 22:13
CefTRIAXone [Rocephin] 2,000 mg IV NOW STA
MetroNIDAZOLE 500 MG/100 ML [Flagyl 500 mg] 100 ml IV NOW
Abnormal Lab Results
05/13/25
18:25
WBC 14.0 H 10^3/uL
(4.8-10.8)
Abs Immat Gran (auto) 0.1 H 10^3/uL
(0-0.05)
Absolute Neuts (auto) 10.1 H 10^3/uL
(1.4-6.5)
Absolute Monos (auto) 1.3 H 10^3/uL
(0.1-0.6)
Lymphocytes % 17.7 L %
(20.5-51.1)
Monocytes % 9.4 H %
(1.7-9.3)
Glucose 110 H mg/dl
(70-99)
Total Bilirubin 1.5 H mg/dl
(0.2-1.3)
05/13/25 18:25
05/13/25 18:25
Vital Signs
Initial and Last Documented VS:
Initial Vital Signs
Temp Pulse Resp BP Pulse Ox
98.8 F 75 20 129/76 96
05/13/25 18:16 05/13/25 18:16 05/13/25 18:16 05/13/25 18:16 05/13/25 18:16
Last Documented Vital Signs
Temp Pulse Resp BP Pulse Ox
98.8 F 72 19 129/76 97
05/13/25 18:16 05/13/25 22:00 05/13/25 22:00 05/13/25 18:16 05/13/25 22:00
*Radiology
Radiology exam reviewed: radiology read reviewed
*Pulse Oximetry
SaO2: 96
Oxygen Mode of Delivery: Room air
Patient hypoxic: no
*Critical Care Note
Total Time (30-74mins, 75-104mins- exclusive of procedures): Not Applicable
Update Note
Update Note:
Patient to ED with report of worsening lower abd. pain despite 4 doses of augmentin for suspected diverticulitis. VSS, he remains afebrile. Labs reviewed, WBC 14.[address] report reviewed, confirms diverticulitis. No abscess, or perforation.
IV antibiotics started in dept. Resting comfortably after IV dilaudid. will admit to hospitalist.
ED Attending Note
-
Portions of this chart may have been created with voice recognition software.� Occasional wrong word or��sound alike� substitutions may have occurred due to the inherent limitations of voice recognition software.
Discharge Plan
Departure
Patient Disposition: Admit
Date of Disposition: 05/13/25
Time of Disposition: 22:14
Presentation/result/management discussed w/ accepting MD/DO: Hospitalist
Condition: Fair
Covid-19: Not Applicable
Discharge Problem:
Diverticulitis
Prescriptions:
No Action
multivitamin with folic acid [Tab-A-Andrew] 1 TABLET tablet
1 tab PO DAILY
acetaminophen [Tylenol] 325 mg Tablet
325 mg PO DAILYPRN PRN (Reason: mild pain)
labetalol 300 mg Tablet
300 mg PO BID
indapamide 2.5 mg Tablet
2.5 mg PO DAILY
cholecalciferol (vitamin D3) [Vitamin D3] 25 mcg (1,000 unit) Tablet
25 mcg PO DAILY
amoxicillin-pot clavulanate 875-125 mg Tablet
1 tab PO Q12 14 Days Qty: 28 0RF
Referrals:
Kadeem Trammell DO [Family Provider, Family Practice]
Interventions
Interventions:
*Risk Screen - Suicide Last Done: 05/13/25 18:16
*General Assessment Last Done: 05/13/25 18:16
*Neglect/Abuse Screening Last Done: 05/13/25 18:16
*ED- Fall Risk Assessment Last Done: 05/13/25 20:38
*ED COVID-19 Vaccine History Last Done: 05/13/25 20:38
*ED Influenza Vaccine History Last Done: 05/13/25 20:38
MQ-Drtyes-Mohjhoyigi Assessment Last Done: 05/13/25 20:26
Discharge Date and Time
Print Language: LAO
[2025-05-13 20:38] VITALS: BMI 32.5
[2025-05-13] MEDS: NSS 1000 IV ×2 (20:57→23:54)
[2025-05-13] MEDS: DILAUDID 1 MG IV (20:58)
[2025-05-13] MEDS: ROCEPHIN 2000 MG IV (22:22)
--- NOTE | 2025-05-13 22:23 | HPS.HSE ---
Family Physician
-
Family Physician: Kadeem Trammell
Chief Complaint
-
abdominal pain
History of Present Illness
This is a 69-year-old with past medical history significant for recurrent diverticulitis, hypertension presenting to the emergency department with acute abdominal pain.
Patient reported that symptoms began last abdominal pain localized to the left lower quadrant that started on Saturday evening. He ate given that he has a history of recurrent diverticulitis patient started Augmentin and has taken 4 doses every 12
hours up until this morning. Despite the Augmentin and self-imposed bowel rest patient continued to have significant abdominal pain that was worsening over this time. Denies having any fevers or chills. Denies any diarrhea nausea or vomiting
except for the first day when he had 1 episode of loose stools. He has no recent sick contacts.
In the emergency department he was afebrile, blood pressure was at 130/76 with a pulse of 72 and was satting 98% on room air.
White count was 14, hemogram platelets were normal. Electrolytes, BUN, creatinine were normal.
CT of the abdomen pelvis showing changes in the left anterolateral pelvis at the junction of the distal descending colon and the sigmoid colon, focal area of diverticulitis with prominent anterior diverticulum. No evidence for drainable abscess. No
evidence for free intraperitoneal air.
Medical History
Past Medical History
Past Medical History: Reports Other
Additional Past Medical History:
Hypertension
GI bleed 1 month ago requiring multiple units of PRBCs, IR embolization of left gastric artery 04/27
Diverticular Disease
V-Fib Arrest
Cervical DDD
Past Surgical History: Reports Other
Additional Past Surgical History:
AICD Placement / Removal
Lipoma Excision
Herniorrhaphy
Social History
Tobacco: Non-smoker
Alcohol: None
Drug: None
Personal:
Living: With Family
Family History
Family History: Not pertinent
Allergies / Home Medications
Allergies reflects when Allergies were last updated in [facility].
Home Medications with original date entered in [facility]
Allergy/Medication List:
Allergies
Allergy/AdvReac Type Severity Reaction Status Date / Time
Antihistamines Allergy Unknown Verified 12/24/24 09:25
hydroxyzine Allergy Unknown Verified 12/24/24 09:25
omeprazole [From Prilosec] Allergy Unknown - Verified 12/24/24 09:25
tolerates
pantoprazole
phenytoin sodium Allergy Unknown Verified 12/24/24 09:25
[From Dilantin]
promethazine Allergy Unknown Verified 12/24/24 09:25
tramadol Allergy Anaphylaxis Verified 12/24/24 09:25
Home Medications
multivitamin with folic acid 400 mcg tablet (Tab-A-Andrew) 1 tab PO DAILY Supplement 07/04/17
acetaminophen 325 mg tablet (Tylenol) 325 mg PO DAILYPRN PRN mild pain 04/02/23
labetalol 300 mg tablet 150 mg PO BID Blood Pressure 04/02/23
cholecalciferol (vitamin D3) 250 mcg (10,000 unit) tablet 250 mcg PO DAILY Supplement 05/13/23
pantoprazole 40 mg tablet,delayed release 40 mg PO BID Gastrointestinal Issue 05/13/23
amoxicillin 875 mg-potassium clavulanate 125 mg tablet 1 tab PO BID #25 tabs 05/22/23
oxycodone 5 mg tablet 5 mg PO Q8H PRN severe pain #7 tabs 05/22/23
cefdinir 300 mg capsule 300 mg PO Q12H 14 days #28 caps 04/05/24
Review of Systems
-
Constitutional: Reports No Symptoms
EENT: Reports No Symptoms
Respiratory: Reports No Symptoms
Cardiac: Reports No Symptoms
Abdomen/GI: Reports Abdominal Pain
: Reports No Symptoms
Musculoskeletal: Reports No Symptoms
Skin: Reports No Symptoms
Neurological: Reports No Symptoms
Endocrine: Reports No Symptoms
Hematologic/Lymphatic: Reports No Symptoms
Psych: Reports No Symptoms
Physical Exam
Vital Signs
Vital Signs
Temp Pulse Resp BP Pulse Ox
98.8 F 72 19 129/76 97
05/13/25 18:16 05/13/25 22:00 05/13/25 22:00 05/13/25 18:16 05/13/25 22:00
Physical Exam
General: Well Developed, Well Nourished and No Apparent Distress
HEENT: NormoCephalic, Moist mucous membranes and Atraumatic
Respiratory: Clear
Cardiac: S1/S2 and Regular Rhythm; No Murmur or Rub
GI: Soft, Non Distended and Normal Bowel Sounds; No Organomegaly
Rectal: Deferred by Provider
Musculoskeletal: No Clubbing, No Cyanosis and No Edema
Skin: No Rash
Neuro: Nonfocal/grossly intact
Laboratory Results
-
05/13/25 18:25
05/13/25 18:25
Laboratory Results
Total Bilirubin 1.5 mg/dl (0.2-1.3) H 05/13/25 18:25
AST 22 U/L (17-59) 05/13/25 18:25
ALT 21 U/L (0-50) 05/13/25 18:25
Alkaline Phosphatase 77 U/L (38-126) 05/13/25 18:25
Lipase 62 U/L (23-300) 05/13/25 18:25
Data Reviewed
-
CT Scan: Report Reviewed by me
Lab Data: Labs Reviewed by me
Old Records: Reviewed
Impression/Plan
-
IMPRESSION:
69-year-old with past medical history significant for hypertension and a prior history of recurrent sigmoid diverticulitis presents to the emergency department with abdominal pain and was found to have acute diverticulitis with leukocytosis. He is
otherwise nontoxic-appearing, hemodynamically stable and in no acute distress. CT scan confirms sigmoid diverticulitis without any perforation and abscess extraoral without complication such as fractures.
PLAN:
Acute diverticulitis -recurrent diverticulitis
-Admit to MedSurg observation
-N.p.o. for now, advance diet as tolerated in a.m.
-Without systemic findings for now, IV ceftriaxone and Flagyl
-Serial examinations
-IV fluids, pain control and antiemetics
-Follow-up with outpatient colorectal
Hypertension
-Continue with patient's labetalol with hold parameters
� Continue patient's indapamide
DVT prophylaxis�lovenox sq
CODE STATUS�full code
[2025-05-13] MEDS: FLAGYL 500 MG 100 IV (22:32)
[2025-05-13] MEDS: DILAUDID 0.5 MG IV (23:22)
[2025-05-14 00:05] VITALS: BP 146/80; BMI 32.0
[2025-05-14] MEDS: DILAUDID 0.5 MG IV ×4 (01:33→09:10)
[2025-05-14] MEDS: FLAGYL 500 MG 100 IV ×3 (05:27→22:38)
[2025-05-14] MEDS: OFIRMEV 100 IV (06:08)
[2025-05-14 07:14] VITALS: BP 116/64
--- NOTE | 2025-05-14 07:24 | PTCARENOTE ---
pt abd pain 05/14 - s/w QA TEST LEAD Naeem RE: pain management. see OCT.
[2025-05-14 08:25] LABS: Hematocrit 37.2 % (39.0-52.0); Hemoglobin 13.0 g/dL (13.0-18.0); Mean Corp Hgb Conc. 34.9 g/dL (33.0-37.0); Mean Corpuscular Volume 85.7 fL (80.0-94.0); Platelet Count 257 10^3/uL (130-400); Red Cell Dist. Width 12.4 % (11.5-14.5)
[2025-05-14 08:48] LABS: Blood Urea Nitrogen 11 mg/dl (9-20); Calcium 8.6 mg/dl (8.4-10.2); Carbon Dioxide 29 mmol/L (22-30); Chloride 102 mmol/L (98-107); Estimated Creatinine Clearance 99 ml/min; Glucose 95 mg/dl (70-99); Magnesium 2.0 mg/dl (1.6-2.3); Potassium 3.6 mmol/L (3.5-5.1); Sodium 138 mmol/L (135-145); eGFR > 60.00
[2025-05-14] MEDS: TRANDATE 300 MG PO ×2 (09:11→19:58)
--- NOTE | 2025-05-14 09:27 | CON.CRS ---
Consultation
-
Date/Time Consultation Requested: 05/14/2025, 08:33
Date/Time Consultation Performed: 05/14/2025, 10:00
Requesting Provider: Doretha Suazo MD
Performing Provider: Alex Whitt
Reason for Consultation: diverticulitis
Medical History
-
Chief Complaint: abdominal pain
History of Present Illness:
69-year-old male with a past medical history of previous diverticulitis, presents to [facility] complaining of left lower quadrant abdominal pain and 1 episode of loose stools. He has had many diverticulitis attacks in the past. He was seen
by Dr. Pepe in 2016 with a diagnosis of 3-5 prior attacks of sigmoid diverticulitis at that time and was admitted on IV Zosyn. Subsequently he had a CT in December 2021 that showed moderate acute diverticulitis in the mid to distal sigmoid colon
(treated as an outpatient), and another in December 2024 that showed acute uncomplicated diverticulitis of distal descending colon (admitted in the hospital for 3 days). The most recent CT performed yesterday showed a focal area of diverticulitis in the
left anterior lateral pelvis at the junction of the distal descending colon and sigmoid colon with no evidence for drainable abscess and no evidence of free intraperitoneal air.
His WBC yesterday was 14.0 and is 9.9 today. He has remained afebrile and his vitals have been normal. His last colonoscopy was by Dr. Huff in 2023 which showed two 2 mm polyps in the descending colon and in the
transverse colon, diverticulosis in the sigmoid colon and in the descending colon, and internal hemorrhoids. Given his recurrent attacks, we have been consulted for further surgical recommendations.
Past Medical History
Past Medical History: Other (Hypertension, GI bleed 1 month ago requiring multiple units of PRBCs, IR embolization of left gastric artery, Diverticular Disease, V-Fib Arrest, Cervical DDD)
Past Surgical History: Other (AICD Placement / Removal, Lipoma Excision, Herniorrhaphy)
Social History
Tobacco: Non-Smoker
Alcohol: None
Drug: None
Personal:
Family History
Family History: Reviewed & Not Pertinent
Allergies / Home Medications
Allergy/AdvReac Type Severity Reaction Status Date / Time
Antihistamines Allergy Unknown Verified 05/13/25 18:20
hydroxyzine Allergy Unknown Verified 05/13/25 18:20
NSAIDS (Non-Steroidal Allergy Unknown Verified 05/14/25 02:38
Anti-Inflamma
omeprazole (From Prilosec) Allergy Unknown - Verified 05/13/25 18:20
tolerates
pantoprazole
phenytoin sodium (From Allergy Unknown Verified 05/13/25 18:20
Dilantin)
promethazine Allergy Unknown Verified 05/13/25 18:20
tramadol Allergy Anaphylaxis Verified 05/13/25 18:20
�Medication �Instructions �Recorded �Confirmed �Type
multivitamin with folic acid 400 1 tab PO DAILY Supplement 07/04/17 05/13/25 History
mcg tablet (Tab-A-Andrew)
acetaminophen 325 mg tablet 325 mg PO DAILYPRN PRN mild pain 04/02/23 05/13/25 History
(Tylenol)
labetalol 300 mg tablet 300 mg PO BID Blood Pressure 04/02/23 05/13/25 History
indapamide 2.5 mg tablet 2.5 mg PO DAILY Fluid 12/24/24 05/13/25 History
Retention/Swelling
amoxicillin 875 mg-potassium 1 tab PO Q12 14 days #28 tabs 12/26/24 05/13/25 Rx
clavulanate 125 mg tablet
Review of Systems
-
History Source: Patient
Abdomen/GI: Abdominal Pain and Diarrhea
A 10 point review of systems was completed, and was negative except as per HPI.
Physical Exam
Vital Signs
Temp 97.2 F 05/14/25 07:14
Pulse 62 05/14/25 09:11
Resp Rate 18 05/14/25 07:14
Blood pressure 116/64 05/14/25 09:11
SaO2 98 05/14/25 07:14
05/13/25 05/14/25 05/15/25
06:59 06:59 06:59
Actual Weight 95.368 kg
Body Mass Index (BMI) 32.0
Lab Results / Allergies
05/14/25 07:31
05/14/25 07:31
WBC 9.9 10^3/uL (4.8-10.8) 05/14/25 07:31
Hgb 13.0 g/dL (13.0-18.0) 05/14/25 07:31
Hct 37.2 % (39.0-52.0) L 05/14/25 07:31
Plt Count 257 10^3/uL (130-400) 05/14/25 07:31
Abs Immat Gran (auto) 0.1 10^3/uL (0-0.05) H 05/13/25 18:25
Neutrophils % 71.7 % (42.2-75.2) 05/13/25 18:25
Allergy/AdvReac Type Severity Reaction Status Date / Time
Antihistamines Allergy Unknown Verified 05/13/25 18:20
hydroxyzine Allergy Unknown Verified 05/13/25 18:20
NSAIDS (Non-Steroidal Allergy Unknown Verified 05/14/25 02:38
Anti-Inflamma
omeprazole (From Prilosec) Allergy Unknown - Verified 05/13/25 18:20
tolerates
pantoprazole
phenytoin sodium (From Allergy Unknown Verified 05/13/25 18:20
Dilantin)
promethazine Allergy Unknown Verified 05/13/25 18:20
tramadol Allergy Anaphylaxis Verified 05/13/25 18:20
Physical Exam
General: Well Developed, Well Nourished and No Apparent Distress
GI: Soft and Non Tender
Skin: Warm and Dry
Neuro: AO x 3
Psych: Calm
Data Reviewed
-
CT Scan: Image Personally Visualized and interpreted, Report Reviewed by me and Discussed with Patient
Labs: Labs Reviewed by me, Discussed with Physician and Discussed with Patient
Old Records: Reviewed
Assessment / Plan
-
Assessment:69 yo male with a past medical history of multiple attacks of sigmoid diverticulitis, presents to [facility] with LLQ abdominal pain and found to have uncomplicated sigmoid diverticulitis on CT
Plan:
-Trend WBC/CRP
-Diet: advance to clears
-Continue IV antibiotics
-No plans for OR at this time. If he worsens, he will require a colectomy with colostomy creation.
-Will need to discuss elective surgery with Dr. Pepe as an outpatient, given his number of attacks.
--- NOTE | 2025-05-14 10:54 | W.PN.HOSP.TC ---
Today's Communication/Plan
-
see outlined plan below
Assessment / Plan
Assessment / Plan
Assessment:
Acute distal colon/sigmoid diverticulitis
- Colonoscopy 10/2023: Diverticulosis in the sigmoid colon and in the descending colon
- NPO, consider clears by evening if pain more controlled. IVF for now
- pain control, anti-emetics
- continue Rocephin, Flagyl day 1
- CRS evaluation
Essential HTN
- continue labetalol
- hold indapamide - not on formulary per pharmacy
GI bleed 1 month ago requiring multiple units of PRBCs, IR embolization of left gastric artery 04/27
V-Fib Arrest s/p ICD
Cervical DDD
DVT ppx: Lovenox
Code: Full
Anticipated Discharge: 24 - 48 hours
Subjective/Interval History
-
Date of Service: May 14, 2025
reports 03/14 LLQ pain, no nausea/vomiting
no fever/chills
Objective Data
-
Labs:
Laboratory Results
05/14/25
07:31
WBC 9.9
Hgb 13.0
Hct 37.2 L
Plt Count 257
Sodium 138
Potassium 3.6
Chloride 102
Carbon Dioxide 29
BUN 11
Creatinine 0.8
Glucose 95
Calcium 8.6
Vital Signs:
Vital Signs
Temp Pulse Resp BP Pulse Ox
97.2 F 62 18 116/64 98
05/14/25 07:14 05/14/25 09:11 05/14/25 07:14 05/14/25 09:11 05/14/25 07:14
I&O
05/13/25 05/14/25 05/15/25
06:59 06:59 06:59
Intake Total 1000 / 1000
Balance 999 / 999
Physical Exam
-
General: Pain
HEENT: Normocephalic and Atraumatic
Respiratory: Negative Wheezes
Cardiac: Regular Rhythm and S1/S2
GI: Soft
Genito-urinary: No Costovertebral Tender
Neuro: AO x 3
Psych: Calm
Data Reviewed
-
Total Time Spent with Patient (in minutes): 42
Labs: Labs Reviewed by me
--- NOTE | 2025-05-14 11:03 | CM ---
Patient seen bedside, initial assessment completed. Patient is a 69-year-old with past medical history significant for recurrent diverticulitis, hypertension presenting to the emergency department with acute abdominal pain.
Patient resides w/ spouse in a [facility]- no steps. Independent in all areas, no DME reported. Denies SNF/HC hx reported. On IV abx.
Address, point of contact and insurance verified
PCP: Kadeem Trammell
Pharmacy: [facility]
Patient admitted obs. OOBS form verbally reviewed, copy provided, copy on chart.
Per hospitalist, will change to inpatient admission today
Plan: Home, no needs anticipated
[2025-05-14] MEDS: DILAUDID 1 MG IV ×3 (11:14→19:57)
[2025-05-14] MEDS: NSS 1000 IV ×2 (11:20→22:37)
[2025-05-14 12:48] LABS: C-Reactive Protein 124.10 mg/L (0.0-10.00)
[2025-05-14] MEDS: ROXICODONE 5 MG PO ×3 (13:55→22:37)
[2025-05-14 15:00] VITALS: BP 136/78
[2025-05-14] MEDS: LOVENOX 40 MG SC (17:14)
[2025-05-14 20:15] VITALS: BP 150/85
[2025-05-14] MEDS: STERILE WATER FOR INJECTION 20 ML IV (22:38)
[2025-05-14] MEDS: ROCEPHIN 2000 MG IV (22:38)
[2025-05-14 23:53] VITALS: BP 125/69
[2025-05-15] MEDS: DILAUDID 1 MG IV ×4 (00:10→12:29)
[2025-05-15] MEDS: FLAGYL 500 MG 100 IV ×3 (05:34→21:24)
[2025-05-15] MEDS: ROXICODONE 5 MG PO (05:35)
[2025-05-15 07:25] VITALS: BP 156/92
[2025-05-15] MEDS: TRANDATE 300 MG PO ×2 (08:19→21:23)
[2025-05-15 08:53] LABS: Hematocrit 37.9 % (39.0-52.0); Hemoglobin 13.1 g/dL (13.0-18.0); Mean Corp Hgb Conc. 34.6 g/dL (33.0-37.0); Mean Corpuscular Volume 86.3 fL (80.0-94.0); Platelet Count 278 10^3/uL (130-400); Red Cell Dist. Width 12.5 % (11.5-14.5)
[2025-05-15 09:23] LABS: C-Reactive Protein 75.80 mg/L (0.0-10.00)
[2025-05-15 09:36] LABS: Blood Urea Nitrogen 10 mg/dl (9-20); Calcium 9.0 mg/dl (8.4-10.2); Carbon Dioxide 27 mmol/L (22-30); Chloride 104 mmol/L (98-107); Estimated Creatinine Clearance 99 ml/min; Glucose 84 mg/dl (70-99); Potassium 4.1 mmol/L (3.5-5.1); Sodium 153 mmol/L (135-145); eGFR > 60.00
--- NOTE | 2025-05-15 12:57 | W.PN.CRS1 ---
Today's Communication / Plan
-
Continue ABX
FLD
Assessment/Plan
-
69 yo M with history of multiple (perhaps 8 or more) attacks of diverticulitis admitted for the same. Imaging confirms inflammation of the descending/sigmoid junction.
AFVSS
No leukocytosis
CRP trending down
Pain still present but notes improvement
Plan:
Advance to fulls
Continue IV abx
Analgesics as needed
No plans for emergent surgery planned today, will follow for continued improvement. Will need outpatient follow up to discuss elective surgery
Subjective Data
Subjective Data
Date of Service: May 15, 2025
Pt seen and examined at bedside with Dr. Whitt. Denies n/v. Tolerating clears. Passing gas, no bm. Reports pain still present but improving.
Objective Data
-
Vital Signs
Temp Pulse Resp BP Pulse Ox
98.8 F 68 18 156/92 99
05/15/25 07:25 05/15/25 08:19 05/15/25 07:25 05/15/25 08:19 05/15/25 10:19
Intake & Output
05/14/25 05/15/25 05/16/25
06:59 06:59 06:59
Intake Total 1000 / 1000 2089
Balance 1000 / 1000 2089
Intake:
Oral fluids 200 / 200 1590 / 1590
IV fluids (Total) 600 / 600 400 / 400
IV piggybacks 200 / 200 100 / 100
Other:
Number of approximated MODERATE 2
amounts of urine
Number of approximated LARGE 1
amounts of urine
Lab Results
05/15/25 08:08
05/15/25 08:08
Physical Exam
-
General: No Acute Distress
HEENT: Grossly Normal
Abdomen: Soft, Non Distended and Tender (LLQ, suprapubic tenderness)
Skin: Warm and Dry
--- NOTE | 2025-05-15 13:00 | W.PN.HOSP.TC ---
Today's Communication/Plan
-
wean IV pain meds as able
PO pain meds
full liquids
IV abx
follow CRS recs
Assessment / Plan
Assessment / Plan
Assessment:
Acute distal colon/sigmoid diverticulitis
- Colonoscopy 10/2023: Diverticulosis in the sigmoid colon and in the descending colon
- diet: Full liquids
- pain control, anti-emetics
- continue Rocephin, Flagyl day 2
- CRS following
Essential HTN
- continue labetalol
- hold indapamide - not on formulary per pharmacy
GI bleed 1 month ago requiring multiple units of PRBCs, IR embolization of left gastric artery 04/27
V-Fib Arrest s/p ICD
Cervical DDD
DVT ppx: Lovenox
Code: Full
Anticipated Discharge: Within 24 hours
Subjective/Interval History
-
Date of Service: May 15, 2025
tolerating clears
now on full liquids
pain still severe at times
Objective Data
-
Labs:
Laboratory Results
05/15/25
08:08
WBC 7.6
Hgb 13.1
Hct 37.9 L
Plt Count 278
Sodium 153 H D
Potassium 4.1
Chloride 104
Carbon Dioxide 27
BUN 10
Creatinine 0.8
Glucose 84
Calcium 9.0
Vital Signs:
Vital Signs
Temp Pulse Resp BP Pulse Ox
98.8 F 68 18 156/92 99
05/15/25 07:25 05/15/25 08:19 05/15/25 07:25 05/15/25 08:19 05/15/25 10:19
I&O
10/10/25 10/11/25 10/12/25
06:59 06:59 06:59
Intake Total 999
Balance 999
Physical Exam
-
General: No Apparent Distress
HEENT: Normocephalic
Respiratory: Negative Wheezes
Cardiac: Regular Rhythm and S1/S2
GI: Soft and Nontender
Neuro: AO x 3
Psych: Calm
Data Reviewed
-
Total Time Spent with Patient (in minutes): 41
Labs: Labs Reviewed by me
[2025-05-15 15:33] VITALS: BP 156/80
[2025-05-15] MEDS: LOVENOX 40 MG SC (17:07)
[2025-05-15] MEDS: STERILE WATER FOR INJECTION 20 ML IV (21:24)
[2025-05-15] MEDS: ROCEPHIN 2000 MG IV (21:24)
[2025-05-15 23:27] VITALS: BP 139/76
[2025-05-16] MEDS: DILAUDID 1 MG IV (00:39)
[2025-05-16] MEDS: FLAGYL 500 MG 100 IV (05:30)
[2025-05-16 06:46] LABS: Hematocrit 36.1 % (39.0-52.0); Hemoglobin 12.6 g/dL (13.0-18.0); Mean Corp Hgb Conc. 34.9 g/dL (33.0-37.0); Mean Corpuscular Volume 86.4 fL (80.0-94.0); Platelet Count 261 10^3/uL (130-400); Red Cell Dist. Width 12.3 % (11.5-14.5)
[2025-05-16 07:29] LABS: C-Reactive Protein 45.60 mg/L (0.0-10.00)
[2025-05-16 07:30] LABS: Blood Urea Nitrogen 8 mg/dl (9-20); Calcium 9.2 mg/dl (8.4-10.2); Carbon Dioxide 30 mmol/L (22-30); Chloride 105 mmol/L (98-107); Estimated Creatinine Clearance 99 ml/min; Glucose 94 mg/dl (70-99); Potassium 4.3 mmol/L (3.5-5.1); Sodium 140 mmol/L (135-145); eGFR > 60.00
[2025-05-16 07:32] VITALS: BP 157/83
--- NOTE | 2025-05-16 08:59 | W.PN.HOSP.TC ---
Today's Communication/Plan
-
dc home if LRD tolerated
Assessment / Plan
Assessment / Plan
Assessment:
Acute distal colon/sigmoid diverticulitis
- Colonoscopy 10/2023: Diverticulosis in the sigmoid colon and in the descending colon
- diet: LRD
- continue Rocephin, Flagyl day 10/12
- CRS follow up outpatient
Essential HTN
- continue labetalol
- hold indapamide - not on formulary per pharmacy
Acute hypernatremia - resolved
GI bleed 1 month ago requiring multiple units of PRBCs, IR embolization of left gastric artery 04/27
V-Fib Arrest s/p ICD
Cervical DDD
DVT ppx: Lovenox
Code: Full
Anticipated Discharge: Today
Subjective/Interval History
-
Date of Service: May 16, 2025
tolerating full liquids
Objective Data
-
Labs:
Laboratory Results
05/16/25
06:17
WBC 5.8
Hgb 12.6 L
Hct 36.1 L
Plt Count 261
Sodium 140 D
Potassium 4.3
Chloride 105
Carbon Dioxide 30
BUN 8 L
Creatinine 0.8
Glucose 94
Calcium 9.2
Vital Signs:
Vital Signs
Temp Pulse Resp BP Pulse Ox
98.1 F 59 16 157/83 97
05/16/25 07:32 05/16/25 07:32 05/16/25 07:32 05/16/25 07:32 05/16/25 07:32
I&O
05/15/25 05/16/25 05/17/25
06:59 06:59 06:59
Intake Total 2089 1440 / 1440
Balance 2089 144 / 1440
Physical Exam
-
General: No Apparent Distress
HEENT: Normocephalic and Atraumatic
Respiratory: Negative Wheezes
Cardiac: Regular Rhythm and S1/S2
GI: Soft and Nontender
Genito-urinary: No Costovertebral Tender
Musculoskeletal: No Edema
Neuro: AO x 3
Psych: Calm
Data Reviewed
-
Total Time Spent with Patient (in minutes): 42
Labs: Labs Reviewed by me
[2025-05-16] MEDS: TRANDATE 300 MG PO (09:13)
--- NOTE | 2025-05-16 09:13 | W.DCSUMMARY ---
Discharge Summary
Discharge Data
Date of Admission: 05/14/25
Date of Discharge: 05/16/25
-
Pending Results: No
Hospital Course
Patient is 69 years old male with past medical history of hypertension, diverticular disease in the past, presented to the hospital with abdominal pain and acute recurrent diverticulitis. Patient was started on IV antibiotics and IV fluids and kept
NPO. He was started on diet the following day and his fluids were discontinued. He has been advancing his diet slowly and he has noticed improvement clinically. Patient is hemodynamically stable, able to tolerate low residue diet and eager to go
home today. Patient will be discharged in stable condition today. He will complete 10 days of oral antibiotics. He will follow up with Colorectal surgery office.
Discharge Plan
-
Patient Disposition: Home (Routine Discharge)
Discharge Diagnosis/Procedures: acute diverticulitis
Condition: Fair
Diet: Low Residue
Activity: As tolerated
Referrals:
Kadeem Pepe MD [Active, ColoRectal]
Referral Note: appointment to discuss surgical correction of diverticular disease
Kadeem Trammell DO [Family Provider, Family Practice]
Prescriptions:
New
cefdinir 300 mg capsule
300 mg PO BID Qty: 14 0RF
metronidazole 500 mg tablet
500 mg PO Q8H Qty: 21 0RF
Continued
multivitamin with folic acid [Tab-A-Andrew] 1 TABLET tablet
1 tab PO DAILY
acetaminophen [Tylenol] 325 mg Tablet
325 mg PO DAILYPRN PRN (Reason: mild pain)
labetalol 300 mg Tablet
300 mg PO BID
indapamide 2.5 mg Tablet
2.5 mg PO DAILY
Discontinued
amoxicillin-pot clavulanate 875-125 mg Tablet
1 tab PO Q12 14 Days Qty: 28 0RF
Discharge Orders:
Discharge Patient (As Directed); Ordered 05/16/25
Ordered By: Doretha Suazo
Discharge Date and Time
Print Language: PUERTO RICAN
[2025-05-16] MEDS: ROXICODONE 5 MG PO (09:18)
--- NOTE | 2025-05-16 13:23 | CM ---
Patient has been medically cleared for discharge to home with no additional skilled services. Patient has arranged for transport home.
== END 2025-05-16 11:33 | disposition home or self-care (01) | DRG 392 ==
LOC: 4 EAST ACU 11:05
PROVIDERS: Emergency Medicine; Physician Assistant; ADMITTING PHYSICIAN Internal Medicine; ATTENDING PHYSICIAN Internal Medicine; CONSULT PHYSICIAN Surgery; EMERGENCY PHYSICIAN Emergency Medicine; FAMILY PHYSICIAN Family Medicine
DX: K57.32 Diverticulitis of large intestine without perforation or abscess without bleeding (principal); E87.0 Hyperosmolality and hypernatremia; I10 Essential (primary) hypertension
CPT/HCPCS: 74177; 80048; 80053; 83690; 83735; 85025; 85027; 86140; 96361; 96365; 96375; 99285; Q9967

== ENCOUNTER 2025-06-25 16:59 | Inpatient (IN) | payer OTHER, SELFPAY ==
[2025-06-25 10:24] VITALS: BP 142/86
[2025-06-25 11:45] VITALS: BMI 32.9
[2025-06-25 12:02] LABS: Hematocrit 43.1 % (39.0-52.0); Hemoglobin 15.2 g/dL (13.0-18.0); Mean Corp Hgb Conc. 35.3 g/dL (33.0-37.0); Mean Corpuscular Volume 86.0 fL (80.0-94.0); Nucleated Red Blood Cells % 0 % (-); Platelet Count 312 10^3/uL (130-400); Red Cell Dist. Width 12.5 % (11.5-14.5)
[2025-06-25 12:20] LABS: ALT (SGPT) 21 U/L (0-50); AST (SGOT) 21 U/L (17-59); Albumin 4.9 g/dl (3.5-5.0); Alkaline Phosphatase 90 U/L (38-126); Blood Urea Nitrogen 13 mg/dl (9-20); Calcium 9.5 mg/dl (8.4-10.2); Carbon Dioxide 28 mmol/L (22-30); Chloride 102 mmol/L (98-107); Estimated Creatinine Clearance 100 ml/min; Glucose 103 mg/dl (70-99); Lipase 1179 U/L (23-300); Potassium 4.0 mmol/L (3.5-5.1); Sodium 138 mmol/L (135-145); Total Protein 7.7 g/dl (6.3-8.2); eGFR > 60.00
[2025-06-25 12:25] LABS: Urine Character Clear (Clear)
--- NOTE | 2025-06-25 12:33 | ED.GENMED ---
History of Present Illness
General
Chief Complaint: Abdominal Pain
Source: patient
Exam Limitations: none
Time Seen by Provider: 06/25/25 11:39
History of Present Illness
History of Present Illness:
69-year-old male complaining of lower abdominal pain mostly left lower quadrant with some radiation to the groin starting last evening. No nausea and vomiting. Bowel movements normal. No trouble urinating. No fever or chills. Feels like
diverticulitis to him.
Past History
Past History
ED Past Medical History: HTN and Other (Migraine headaches, hypertension,vfib arrest-s/p aicd-removed)
ED Past Surgical History: Cardiac (Prior AICD) and Other (Left inguinal herniorrhaphy)
Social History
Tobacco: Non-smoker
Alcohol: Occasional
Drug: None
Personal:
Living: with family
Employment: Employed
Family History
Family History: Other (Noncontributory)
Review of Systems
Review of Systems
All Other Systems: Not applicable
Constitutional: Denies fever or chills
: Reports no symptoms
Phy Exam
Physical Exam
Physical Exam:
GENERAL: Alert and oriented in no apparent distress
EYE: Orbits normal.
NECK: Supple
CARDIAC: Regular rate and rhythm without any obvious murmurs.
LUNGS: Clear breath sounds,normal
ABDOMEN: Soft, mild left lower quadrant tenderness. No rebound or guarding no mass or hernia
NEUROLOGICAL: Alert and oriented , grossly non-focal
SKIN: Warm and dry, no rash or lesion, no discoloration, skin intact.
MUSCULOSKELETAL: No edema,no deformity.Good color
PSYCH: Normal and appropriate interaction.
Course
Orders/Labs/Results
Orders:
Orders
06/25/25 Lunch
NPO
Allow oral meds: No
Allow clear liquids: No
NPO with Ice Chips: Yes
06/25/25 11:46
Complete Blood Count/With Diff Urgent
Comprehensive Metabolic Panel Urgent
Lipase Urgent
06/25/25 12:16
Urinalysis Reflex To Culture Urgent
Date Specimen was Collected: 06/25/25
Time Specimen was Collected: 12:12
06/25/25 12:31
CT Abd/Pel (IV only)-DH only Urgent
Comment:
Reason For Exam: Left lower quadrant pain. Elevated lipase
IV Insert/Care/Rem.- Treatment PRN
0.9% Sodium Chloride 500 ml [Nss] 500 ml IV BOLUS
HYDROmorphone [Dilaudid] 1 mg IV NOW STA
06/25/25 15:25
HYDROmorphone [Dilaudid] 1 mg IV NOW STA
06/25/25 15:46
Piperacillin/Tazo 3.375 Gram [Zosyn] 3.375 gram in 50 ml IV NOW
06/25/25 16:12
Admit/Transfer Patient As Directed
Co-Sign Provider:
Level of Care: Inpatient admission
Assign to:: Medical/Surgical
Physician / Group: Hospitalist
Transfer to: Medical/Surgical
Diagnosis: Acute pancreatitis
Reason for Hospitalization: Acute pancreatitis
Expected length of stay greater than two midnights?: Yes
ELOS- Estimated Length of Stay in days: 3
I certify the patient meets the requirements for IP care: Yes
06/25/25 16:14
PRN Pain Medication Management As Directed
May give lesser potent ordered pain med per pt: Yes
preference::
Protocol:: Medication orders for pain may be administered in a
manner that supports deferring to patient preference
when the pt is:
- Requesting an ordered lesser potent pain medication.
Least to most potent pain medications are defined
as: acetaminophen < NSAID < tramadol < opioids
(morphine, oxycodone, hydromorphone).
- Requesting a lesser dose of the same medication IF
ORDERED.
- Requesting a less intrusive route of administration
if both routes are prescribed by the provider (PO <
IV).
06/25/25 16:15
Code Status As Directed
Resuscitation Status: Full Code
06/25/25 16:40
GASTROINTESTINAL CONSULT Routine
Consulting Provider: Trisha Castaneda
Was physician already notified: Yes
06/25/25 17:19
Acetaminophen [Tylenol] 325 mg PO DAILYPRN PRN mild pain
HYDROmorphone [Dilaudid] 0.25 mg IV Q3HPRN PRN
Lactated Ringers [Lr] 1,000 ml IV 100 mls/hr
06/25/25 17:19
DX Deep Vein Thrombosis Video Routine
06/25/25 18:00
Enoxaparin Sodium [Lovenox] 40 mg SC QPM
06/25/25 20:00
Labetalol [Trandate] 300 mg PO BID
06/26/25 08:00
Multivitamin [Theragran] 1 tablet PO DAILY
Abnormal Lab Results
06/25/25
11:46
WBC 11.2 H 10^3/uL
(4.8-10.8)
Absolute Neuts (auto) 8.4 H 10^3/uL
(1.4-6.5)
Absolute Monos (auto) 1.0 H 10^3/uL
(0.1-0.6)
Lymphocytes % 14.7 L %
(20.5-51.1)
Glucose 103 H mg/dl
(70-99)
Lipase 1179 H* U/L
(23-300)
06/25/25 11:46
06/25/25 11:46
Vital Signs
Initial and Last Documented VS:
Initial Vital Signs
Temp Pulse Resp BP Pulse Ox
98.4 F 68 20 142/86 97
06/25/25 10:24 06/25/25 10:24 06/25/25 10:24 06/25/25 10:24 06/25/25 10:24
Last Documented Vital Signs
Temp Pulse Resp BP Pulse Ox
97.6 F 56 12 164/82 98
06/27/25 15:00 06/27/25 15:00 06/27/25 15:00 06/27/25 15:00 06/27/25 15:00
MDM/Problems Addressed
Differential Diagnosis Includes:
Most suspicious of diverticulitis clinically however lipase is moderately elevated. Will check CT scan to hopefully clear this up. Highly doubt prostatitis
*Radiology
Radiology exam reviewed: radiology read reviewed (Diverticulitis)
*Pulse Oximetry
SaO2: 97
Oxygen Mode of Delivery: Room air
Patient hypoxic: no
*Critical Care Note
Total Time (30-74mins, 75-104mins- exclusive of procedures): Not Applicable
Data Reviewed
Review of Other/Old Records Reveals: Labs, Records, Radiology Studies and Testing
Update Note
Update Note:
Symptom complex most consistent with diverticulitis. However lipase is elevated above what I would expect from a nonspecific abdominal issue. He also has a slightly dilated common bile duct and gallstones. Is also required significant IV pain
management. Will be admitted for further care
ED Attending Note
-
Portions of this chart may have been created with voice recognition software.� Occasional wrong word or��sound alike� substitutions may have occurred due to the inherent limitations of voice recognition software.
Discharge Plan
Departure
Patient Disposition: Admit
Date of Disposition: 06/25/25
Time of Disposition: 15:47
Presentation/result/management discussed w/ accepting MD/DO: Hospitalist
Discharge Problem:
Diverticulitis, Possible pancreatitis
Interventions
Interventions:
*Risk Screen - Suicide Last Done: 06/25/25 10:24
*General Assessment Last Done: 06/25/25 10:24
*Neglect/Abuse Screening Last Done: 06/25/25 10:24
*Nursing Disposition Last Done: 06/25/25 17:32
VE-Mwdtqx-Hpboeonvjk Assessment Last Done: 06/25/25 11:48
Discharge Date and Time
Discharge Date/Time: 06/25/25 17:33
[2025-06-25] MEDS: DILAUDID 1 MG IV ×4 (12:45→23:16)
[2025-06-25] MEDS: NSS 500 IV (12:45)
[2025-06-25] MEDS: ZOSYN 50 IV ×2 (16:10→21:13)
--- NOTE | 2025-06-25 16:17 | HPS.HSE ---
Family Physician
-
Family Physician: Kadeem Trammell
Chief Complaint
-
Left lower quadrant.
History of Present Illness
69-year-old male with history of hypertension, diverticulitis presents to the ED with severe left lower quadrant pain. He notes that his pain started last night at 6 PM, the intensity of the pain increased and he was unable to sleep at night. He
knows that this pain is similar to diverticulitis which he had in the past. He denies fever, chills, nausea, vomiting, recent travel, sick contact.
Medical History
Past Medical History
Past Medical History: Reports HTN and Other ((Migraine headaches,vfib arrest-s/p aicd-removed))
Additional Past Medical History:
Diverticulitis
Past Surgical History: Reports Other (Cardiac (Prior AICD) and Other (Left inguinal herniorrhaphy))
Additional Past Surgical History:
Cardiac (Prior AICD) and Other (Left inguinal herniorrhaphy)
Social History
Tobacco: Non-smoker
Alcohol: Occasional
Drug: None
Personal:
Living: With Family
Employment: Employed
Family History
Family History: Not pertinent
Allergies / Home Medications
Allergies reflects when Allergies were last updated in [facility].
Home Medications with original date entered in [facility]
Allergy/Medication List:
Allergies
Allergy/AdvReac Type Severity Reaction Status Date / Time
Antihistamines Allergy Unknown Verified 06/25/25 10:27
hydroxyzine Allergy Unknown Verified 06/25/25 10:27
NSAIDS (Non-Steroidal Allergy Unknown Verified 06/25/25 10:27
Anti-Inflamma
omeprazole (From Prilosec) Allergy Unknown - Verified 06/25/25 10:27
tolerates
pantoprazole
phenytoin sodium (From Allergy Unknown Verified 06/25/25 10:27
Dilantin)
promethazine Allergy Unknown Verified 06/25/25 10:27
tramadol Allergy Anaphylaxis Verified 06/25/25 10:27
Home Medications
multivitamin with folic acid 400 mcg tablet (Tab-A-Andrew) 1 tab PO DAILY Supplement 07/04/17
acetaminophen 325 mg tablet (Tylenol) 325 mg PO DAILYPRN PRN mild pain 04/02/23
labetalol 300 mg tablet 300 mg PO BID Blood Pressure 04/02/23
indapamide 2.5 mg tablet 2.5 mg PO DAILY Fluid Retention/Swelling 12/24/24
Review of Systems
-
A 12 point ROS was completed and negative except as noted: Yes
Physical Exam
Vital Signs
Vital Signs
Temp Pulse Resp BP Pulse Ox
98.4 F 68 20 142/86 97
06/25/25 10:24 06/25/25 10:24 06/25/25 10:24 06/25/25 10:24 06/25/25 12:34
Physical Exam
General: Conversant and Pain
HEENT: NormoCephalic and Anicteric
Respiratory: Clear
Cardiac: S1/S2 and Regular Rhythm
GI: Soft, Non Distended, Normal Bowel Sounds and Tender (severe with voluntary guarding around left lower quadrant mild tenderness around epigastrium)
Musculoskeletal: No Clubbing, No Cyanosis and No Edema
Skin: Warm and Dry
Neuro: AO x 3
Hematologic/Lymphatic: No Lymphadenopathy
Psych: Calm
Laboratory Results
-
06/25/25 11:46
06/25/25 11:46
Laboratory Results
Total Bilirubin 0.9 mg/dl (0.2-1.3) 06/25/25 11:46
AST 21 U/L (17-59) 06/25/25 11:46
ALT 21 U/L (0-50) 06/25/25 11:46
Alkaline Phosphatase 90 U/L (38-126) 06/25/25 11:46
Lipase 1179 U/L (23-300) H* 06/25/25 11:46
Data Reviewed
-
CT Scan: Report Reviewed by me and Discussed with Physician
Lab Data: Labs Reviewed by me and Discussed with Physician
Impression/Plan
-
IMPRESSION:
Acute pancreatitis
Acute diverticulitis
Essential hypertension
PLAN:
Acute pancreatitis
Afebrile white count 11,500
Questionable medication induced - indapamide vs gallstones
NPO
Start LR 100ml/hr
Pain control with IV Dilaudid
Lipase 1179. Trend lipase
Normal AST, ALT, total bilirubin
CT scan shows dilatation of common bile duct up to 8 mm
MRCP recommended per radiology
Consult GI
Monitor white count and temperature curve
CT abdomen/pelvis:
1. Persistent acute uncomplicated diverticulitis of the distal descending/proximal sigmoid colon, similar to prior.
2. Slightly prominent common bile duct. Consider outpatient workup with dedicated MRCP, as clinically indicated.
3. Cholelithiasis.
4. Hepatic steatosis.
Acute diverticulitis
Left lower quadrant severe tenderness with voluntary guarding
Continue IV Zosyn
Colonoscopy recommended 4 to 6 weeks outpatient after diagnosis of diverticulitis
NPO
Monitor white count and temperature curve
Pain control with IV Dilaudid
Essential hypertension
Hold indapamide.
Recommend completely stopping the medication and switch to a different class. High risk of pancreatitis with thiazide diuretics.
Continue labetalol
Full code
NPO
Lovenox
--- NOTE | 2025-06-25 16:32 | EDCM ---
Reviewed chart and met with pt bedside in ED. He lives with his in 2 SH, no CANDACE, has first floor half bath, full flight to second floor bedroom and full bath.
Independent in ADLs, personal care and ambulation at baseline. No assistive device. Still working and driving. Goes to the gym 4 days a week.
Confirms prescription coverage.
No hx VN or SNF.
PCP: Kadeem Trammell
Pharmacy: [facility]
Anticipate discharge home, CM will continue to follow for any discharge planning needs.
--- NOTE | 2025-06-25 16:43 | W.PN.UPDATE ---
Update Note
Progress Note Update
I saw and evaluated the patient with the resident.
HPI: 69-year-old male with history of hypertension, recent diverticulitis, V-Fib Arrest s/p ICD, presented to the ED with severe left lower quadrant pain that felt similar to previous acute diverticulitis.
The pain started the evening CARDIAC SPECIALIST. He denied to significant epigastric or RUQ abd pain.
He denies fever, chills, nausea, vomiting, recent travel, sick contact.
CT abdomen/pelvis:
1. Persistent acute uncomplicated diverticulitis of the distal descending/proximal sigmoid colon, similar to prior.
2. Slightly prominent common bile duct. Consider outpatient workup with dedicated MRCP, as clinically indicated.
3. Cholelithiasis.
4. Hepatic steatosis.
A/P:
# Recurrent diverticulitis
Continue Zosyn
Pain control with IV Dilaudid PRN
Recc outpt C scope in 4-6 weeks
# Likely acute pancreatitis with elevated lipase level
Questionable gallstones vs medication induced 2/2 indapamide
Informed to hold indapamide going forward
NPO with IVF RL
Lipase 1179. Trend lipase
# CT scan showed slightly prominent dilatation of common bile duct
Consult GI, consider MRCP
# Essential hypertension
Hold indapamide. Recommend completely stopping the medication and switch to a different class. High risk of pancreatitis with thiazide diuretics.
Continue labetalol
Full code
Lovenox SQ
[2025-06-25 17:23] VITALS: BMI 32.2
[2025-06-25 17:24] VITALS: BP 147/84
[2025-06-25] MEDS: LOVENOX 40 MG SC (17:59)
[2025-06-25] MEDS: LR 1000 IV (17:59)
[2025-06-25] MEDS: TRANDATE 15 MG IV (21:12)
[2025-06-25] MEDS: DILAUDID 0.25 MG IV (21:19)
[2025-06-25 23:20] VITALS: BP 145/84
[2025-06-26] MEDS: DILAUDID 1 MG IV ×7 (02:43→23:27)
[2025-06-26] MEDS: TRANDATE 15 MG IV ×2 (02:47→09:07)
[2025-06-26 03:13] VITALS: BP 152/81
[2025-06-26] MEDS: LR 1000 IV ×2 (04:56→17:13)
[2025-06-26] MEDS: ZOSYN 50 IV ×4 (04:59→22:00)
[2025-06-26 07:00] VITALS: BP 149/90
[2025-06-26 08:15] LABS: Hematocrit 41.1 % (39.0-52.0); Hemoglobin 14.7 g/dL (13.0-18.0); Mean Corp Hgb Conc. 35.8 g/dL (33.0-37.0); Mean Corpuscular Volume 85.3 fL (80.0-94.0); Nucleated Red Blood Cells % 0 % (-); Platelet Count 306 10^3/uL (130-400); Red Cell Dist. Width 12.8 % (11.5-14.5)
[2025-06-26 08:30] LABS: ALT (SGPT) 20 U/L (0-50); AST (SGOT) 21 U/L (17-59); Albumin 4.6 g/dl (3.5-5.0); Alkaline Phosphatase 72 U/L (38-126); Blood Urea Nitrogen 11 mg/dl (9-20); Calcium 9.3 mg/dl (8.4-10.2); Carbon Dioxide 32 mmol/L (22-30); Chloride 101 mmol/L (98-107); Estimated Creatinine Clearance 79 ml/min; Glucose 99 mg/dl (70-99); Lipase 46 U/L (23-300); Potassium 3.9 mmol/L (3.5-5.1); Sodium 140 mmol/L (135-145); Total Protein 7.5 g/dl (6.3-8.2); eGFR > 60.00
[2025-06-26] MEDS: THERAGRAN PO (09:04)
--- NOTE | 2025-06-26 09:50 | CON.GI ---
Addendum entered and electronically signed by Trisha Casatneda MD 06/26/25 11:40:
I saw and examined the patient.
The OBSTETRICS TEACHER's note was reviewed and I agree with the note.
Comment This is a 69-year-old male with past medical history as listed below including a significant history of massive upper GI bleed 03/2023 with multiple endoscopies, enteroscopy which showed blood in the fundus of the stomach and was noted to
have ulcers and also gastric angioectasia was also treated and also had IR embolization of GDA for probable Dieulafoy lesion in the stomach and then subsequently was transferred to [place] and apparently had further endoscopic procedures and VCE
with no obvious source identified and recently in 2023 had a follow-up endoscopy and colonoscopy with Dr. Huff as described below and also has a history of recurrent acute diverticulitis and was recently here in May now presents with left
lower quadrant pain since again and repeat CT shows recurrent acute diverticulitis. Also shows ductal dilatation with biliary ductal dilatation and also noted to have gallstones and elevated lipase level but repeat lipase level is normal
and he currently denies any epigastric pain. No fevers or chills no nausea or vomiting. Also currently denies any rectal bleeding, he denies constipation, he states his bowel movements are pretty regular his last bowel movement was yesterday.
Assessment and plan recurrent acute diverticulitis more than 8 episodes continue Zosyn. He has been seen and evaluated by colorectal surgery in the past and was going to follow-up with Dr. Pepe as outpatient to discuss eventual elective resection
given multiple episodes. Okay for clear liquid diet.
GS and Elevated lipase level but doubt biliary pancreatitis lipase on repeat has normalized. He does have gallstones and was noted to have minimal ductal dilatation on CT but doubt CBD stone. He does have a mildly elevated bilirubin which most
likely is from Gilbert syndrome. He is unable to have an MRI because of ICD leads. Will get an abdomen ultrasound.
Original Note:
Consultation
-
Date/Time Consultation Requested: 06/25/25 1640
Date/Time Consultation Performed: 06/26/25 0915
Requesting Provider: Dr. Vega
Performing Provider: Dr. Castaneda/YUSUF Marte
Reason for Consultation: diverticulitis
Medical History
Chief Complaint / HPI
Chief Complaint: syncope/ black stools
History of Present Illness:
69 yo with hx HTN, v-fib arrest ? tramadol related with prior AICD then removal (leads still in place unable to have MRI), hx colon polyp with post polypectomy bleeding 2002, massive GI bleed 04/03/2023 (8 units packed red blood cells) no clear
source found. Had multiple endoscopies, small bowel endoscopy, empiric IR embolization of gastric artery, EGD 04/03/2025 showed large adherent clot unable to stop bleeding, after GDA was embolization, superficial gastric ulcers, chronic neck pain,
multiple episodes of diverticulitis (roughly 8 attacks) in the descending sigmoid colon last one being 05/14/2025 who returns to the emergency room with recurrent left lower quadrant pain. We are asked to evaluate for the same. The patient was
supposed to follow-up with colorectal surgery as an outpatient to discuss elective colon resection. He states that yesterday evening he developed left lower quadrant pain, sharp, constant, nonradiating associated with abdominal distention. He
continues to have bowel movements. He does not have any associated constipation or loose stools. He denies any fevers, chills, nausea, vomiting, melena, hematochezia, dysphagia or odynophagia. No early satiety or unintended weight loss. He does
not smoke. He does not drink any alcohol. No NSAID use. He still has mild left lower quadrant discomfort. He is n.p.o. at this time. WBC 7.9 (down from 11.2), hemoglobin 14.7, hematocrit 41.1, platelets 306, sodium 140, potassium 3.9, BUN 11,
creatinine 1.0, glucose 99, total bilirubin 2.1 (increased from 0.9), no direct bilirubin, AST 21, ALT 20, alk phos 72, lipase 46 (down from lipase 1179). CT of the abdomen and pelvis with IV contrast only shows persistent acute uncomplicated
diverticulitis of the distal descending/proximal sigmoid colon. Similar to prior. Slightly prominent common bile duct (8 mm). Cholelithiasis. Hepatic steatosis.
Past Medical History
Past Medical History: HTN and Other (migraines, V-fib arrest possible tramadol related s/p AICD the removal (unable to have MRI secondary to AICD leads in place), chronic neck pain, colon polyp with post polypectomy bleed in 2002, massive GI bleed
requiring 8 units packed red blood cell and embolization of gastric artery, gastric ulcer)
Past Surgical History: Cardiac (prior AICD) and Other (left inguinal hernia, neck ablation therapy, arm lipoma removal in 2021)
Social History
Tobacco: Non-Smoker
Alcohol: None
Drug: None
Personal:
Living: With Family
Employment: Employed
Family History
Family History: Other (no family hx colon CA or GI problems )
Allergies / Home Medications
Allergy/AdvReac Type Severity Reaction Status Date / Time
Antihistamines Allergy Unknown Verified 06/25/25 10:27
hydroxyzine Allergy Unknown Verified 06/25/25 10:27
NSAIDS (Non-Steroidal Allergy pt says it Verified 06/25/25 17:47
Anti-Inflamma makes him
tachy
omeprazole (From Prilosec) Allergy Unknown - Verified 06/25/25 10:27
tolerates
pantoprazole
phenytoin sodium (From Allergy Unknown Verified 06/25/25 10:27
Dilantin)
promethazine Allergy Unknown Verified 06/25/25 10:27
tramadol Allergy Anaphylaxis Verified 06/25/25 10:27
�Medication �Instructions �Recorded
multivitamin with folic acid 400 1 tab PO DAILY Supplement 07/04/17
mcg tablet (Tab-A-Andrew)
acetaminophen 325 mg tablet 325 mg PO DAILYPRN PRN mild pain 04/02/23
(Tylenol)
labetalol 300 mg tablet 300 mg PO BID Blood Pressure 04/02/23
indapamide 2.5 mg tablet 2.5 mg PO DAILY Fluid 12/24/24
Retention/Swelling
Review of Systems
-
All other systems: A 12 pt ROS was Negative except as stated above in HPI
Vital Signs
Temp Pulse Resp BP Pulse Ox
98 F 68 16 149/90 95
06/26/25 07:00 06/26/25 09:07 06/26/25 07:00 06/26/25 09:07 06/26/25 07:00
Physical Exam
Exam
General: No Apparent Distress
HEENT: Anicteric
Respiratory: Clear (Slightly decreased bases bilaterally)
Cardiac: Regular Rhythm
GI: Soft, Normal Bowel Sounds, Tender (Left lower quadrant tenderness, mild) and Other (Mildly distended)
Musculoskeletal: No Edema
Skin: Warm and Dry
Neuro: AO x 3
Psych: Calm
Results
WBC 7.9 10^3/uL (4.8-10.8) 06/26/25 07:57
Hgb 14.7 g/dL (13.0-18.0) 06/26/25 07:57
Hct 41.1 % (39.0-52.0) 06/26/25 07:57
MCV 85.3 fL (80.0-94.0) 06/26/25 07:57
Plt Count 306 10^3/uL (130-400) 06/26/25 07:57
Absolute Neuts (auto) 5.1 10^3/uL (1.4-6.5) 06/26/25 07:57
Sodium 140 mmol/L (135-145) 06/26/25 07:57
Potassium 3.9 mmol/L (3.5-5.1) 06/26/25 07:57
Chloride 101 mmol/L (98-107) 06/26/25 07:57
Carbon Dioxide 32 mmol/L (22-30) H 06/26/25 07:57
BUN 11 mg/dl (9-20) 06/26/25 07:57
Creatinine 1.0 mg/dL (0.7-1.3) 06/26/25 07:57
Calcium 9.3 mg/dl (8.4-10.2) 06/26/25 07:57
Total Bilirubin 2.1 mg/dl (0.2-1.3) H D 06/26/25 07:57
AST 21 U/L (17-59) 06/26/25 07:57
ALT 20 U/L (0-50) 06/26/25 07:57
Alkaline Phosphatase 72 U/L (38-126) 06/26/25 07:57
Lipase 46 U/L (23-300) 06/26/25 07:57
Diagnostic Image Results:
CT abdomen and pelvis IV contrast only:
1. Persistent acute uncomplicated diverticulitis of the distal descending/proximal sigmoid colon, similar to prior.
2. Slightly prominent common bile duct. Consider outpatient workup with dedicated MRCP, as clinically indicated.
3. Cholelithiasis.
4. Hepatic steatosis.
Prior GI Procedures:
COLO 10/04/23 ([facility]) - The examined portion of the ileum was normal.
- Two 2 mm polyps in the descending colon and in the
transverse colon, removed with a jumbo cold forceps.
Resected and retrieved.
- Diverticulosis in the sigmoid colon and in the
descending colon.
- Internal hemorrhoids.
EGD 10/04/23 ([facility]) - Normal esophagus.
- Glycogenic acanthosis of the esophagus.
- Erythematous mucosa in the stomach. Biopsied.
- A single gastric polyp. Biopsied.
- Normal examined duodenum.
Upper endoscopy at [place] showed: Normal duodenum, esophageal candidiasis, ulcer in stomach, deployed Endo Clip.
Patient had 2 video capsule endoscopies at [place] that were negative. One of the camera stopped recording so they did a step and endoscopy with a camera dropped one of the EGDs he thought was a push.)
Small bowel Endoscopy 04/06/25 ([facility]) - Esophageal ulcers with no bleeding and no stigmata
of recent bleeding.
- Non-bleeding gastric ulcers with no stigmata of
bleeding.
- A single non-bleeding angiodysplastic lesion in the
stomach. Treated with argon plasma coagulation (APC).
- Normal examined duodenum.
- The examined portion of the jejunum was normal.
Tattooed.
- No specimens collected.
EGD 04/05/23 ([facility]) - Normal esophagus.
- Erythematous mucosa in the gastric body.
- Non-bleeding gastric ulcers, one of which had minor
oozing of blood. Clip was placed.
- Normal duodenal bulb, first portion of the duodenum
and second portion of the duodenum.
- No specimens collected.
EGD 04/04/25 ([facility]) - Non-obstructing Schatzki ring.
- Small hiatal hernia.
- Clotted blood in the gastric fundus. the clot was
moved with help of net and suction with help also from
Dr. Deleon
- Three Mucosal tears in the gastric fundus seen after
clot removed,but no active bleeding or visible vessel
seen, not sure if this was the source of bleeding or a
dieulafoy not seen/found on exam. no ulcer seen no
angiectasias seen.
- No specimens collected.
IR Embolization 04/03/25:
1. Successful coil embolization of the left gastric artery.
2. Left gastric artery was extremely difficult to catheterize, due to small size and acute angulation from the proximal celiac axis.
3. No focus of extravasation was seen from the left gastric artery, however inferior embolization was performed due to uncontrollable hemorrhage from the fundus on endoscopy.
EGD: 04/03/23 ([facility]) - Normal esophagus.
- Clotted blood in the gastric fundus. A large clot
with fresh blood and bleeding seen, tried to move the
clot with gupta net and also used therapeutic endoscope
to suction clot but there was a large adherent clot
and unable to move/detach the clot. ? dieulafoy
lesion/AVM/PUD under the clot but unable to see under
the clot to identify the source despite injecting
Epinephrine to slow the bleed and moving/removing
partial clot.
- Red blood in the gastric fundus.
- Normal examined duodenum.
- No specimens collected.
- Sending to IR emergently from endo for Arteriogram
and possible embolization, d/w Dr. Martinez location of
GIB and clot is in fundus/cardia.
Colonoscopy 2014 with stable results at [place] recall due 10 years.
EGD [address] Goodwin 2002 with non erosive gastritis and colon with difficulty sigmoid diverticulosis and removal of pediculated polyp 18 cm with post polypectomy bleeding requiring epi injection and bicpap treatment with Dr. Guevara. ([id number]
biopsied not reviewed)
Assessment / Plan
-
69 yo with hx HTN, v-fib arrest ? tramadol related with prior AICD then removal (leads still in place unable to have MRI), hx colon polyp with post polypectomy bleeding 2002, massive GI bleed 04/03/2023 (8 units packed red blood cells) no clear
source found. Had multiple endoscopies, small bowel endoscopy, empiric IR embolization of gastric artery, EGD 04/03/2025 showed large adherent clot unable to stop bleeding, after GDA was embolization, superficial gastric ulcers, chronic neck pain,
multiple episodes of diverticulitis (roughly 8 attacks) in the descending sigmoid colon last one being 05/14/2025 who returns to the emergency room with recurrent left lower quadrant pain. We are asked to evaluate for the same. CT abdomen and
pelvis with IV contrast only shows persistent acute uncomplicated diverticulitis of the distal descending/proximal sigmoid colon. Slightly prominent CBD (8 mm). Cholelithiasis. Patient did have an elevated lipase initially which has returned to
normal. Initial LFTs completely within normal limits. Today has an increase in total bilirubin. Was not fractionated. No upper GI complaints. Patient cannot have an MRI secondary to retained AICD leads. Has not been able to follow-up with
colorectal surgery to discuss elective colon resection from the last episode of diverticulitis hospitalized 6 weeks ago.
Impression:
Recurrent acute diverticulitis, distal descending/proximal sigmoid colon.
Prominent CBD (8 mm)
Elevated lipase, resolved
Cholelithiasis
History of superficial gastric ulcers, massive GI bleed (03/2023) no clear source found-> multiple endoscopic procedures empiric IR GDA embolization, transfer to [facility]-> repeat endoscopy and colonoscopy 10/2023
Hepatic steatosis on imaging
Hypertension
Plan:
- Continue antibiotics, currently on Zosyn
- Fractionate bilirubin
- Repeat LFTs in a.m.
- Obtain ultrasound of abdomen to evaluate bile ducts. Unable to have MRI secondary to retained AICD leads.
- Patient currently n.p.o. secondary to acute diverticulitis
-Patient needs follow-up with colorectal surgery as an outpatient to discuss elective colon resection. Plans to call Dr. Pepe's office to schedule
- CBC, BMP, LFTs in a.m.
-Recommend ambulation as patient has slight abdominal distention and decreased lung sounds in bilateral bases. Incentive spirometry also.
- Further recommendations to be forthcoming
-
-
Thank you for consultation and allowing me to participate in the patient's care. Please call the transition teacher GI physician during the after hours with any questions or concerns.
[2025-06-26 11:00] VITALS: BP 138/93
--- NOTE | 2025-06-26 12:21 | W.PN.HOSP.TC ---
Today's Communication/Plan
-
abx
CLD
IVF
Abd US
Assessment / Plan
Assessment / Plan
HPI: 69-year-old male with history of hypertension, recent diverticulitis, V-Fib Arrest s/p ICD, presented to the ED with severe left lower quadrant pain that felt similar to previous acute diverticulitis.
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 He denied to significant epigastric or RUQ abd pain.
He denies fever, chills, nausea, vomiting, recent travel, sick contact.
CT abdomen/pelvis:
1. Persistent acute uncomplicated diverticulitis of the distal descending/proximal sigmoid colon, similar to prior.
2. Slightly prominent common bile duct. Consider outpatient workup with dedicated MRCP, as clinically indicated.
3. Cholelithiasis.
4. Hepatic steatosis.
A/P:
# Recurrent diverticulitis
-recurrent acute diverticulitis more than 8 episodes - Seen by CRS outpatient with ongoing discussions for elective resection with Dr. Pepe
Improving
Continue Zosyn
Pain control with IV Dilaudid PRN
Trial CLD
# Elevated Lipase
-doubt biliary pancreatitis as per GI
-Lipase normalized
-Does have gallstones and minimal CBF dilation but no obvious stone;
-Unable to obtain MRI due to ICD leads
--F/u Abd US
#Elevated bilirubin
-likely Gilbert Syndrome
-ctm
# Essential hypertension
Hold indapamide. Recommend completely stopping the medication and switch to a different class. High risk of pancreatitis with thiazide diuretics.
Continue labetalol
Full code
Lovenox SQ
Anticipated Discharge: 24 - 48 hours
Subjective/Interval History
-
Date of Service: June 26, 2025
no acute events overnight
Objective Data
-
Labs:
Laboratory Results
06/26/25
07:57
WBC 7.9
Hgb 14.7
Hct 41.1
Plt Count 306
Sodium 140
Potassium 3.9
Chloride 101
Carbon Dioxide 32 H
BUN 11
Creatinine 1.0
Glucose 99
Calcium 9.3
Total Bilirubin 2.1 H D
AST 21
ALT 20
Alkaline Phosphatase 72
Vital Signs:
Vital Signs
Temp Pulse Resp BP Pulse Ox
97.9 F 63 16 138/93 95
06/26/25 11:00 06/26/25 11:00 06/26/25 11:00 06/26/25 11:00 06/26/25 11:00
I&O
06/25/25 06/26/25 06/27/25
06:59 06:59 06:59
Intake Total 0 / 0
Balance 0 / 0
Review of Systems
-
History Source: Patient
All other systems: Not reviewed unless documented
Data Reviewed
-
Total Time Spent with Patient (in minutes): 42
CT Scan: Report Reviewed by me
Labs: Labs Reviewed by me
[2025-06-26 14:52] VITALS: BP 168/88
[2025-06-26] MEDS: LOVENOX 40 MG SC (17:13)
[2025-06-26 19:13] VITALS: BP 175/92
[2025-06-26] MEDS: TRANDATE 300 MG PO (20:27)
[2025-06-26 23:10] VITALS: BP 130/77
[2025-06-27] MEDS: DILAUDID 1 MG IV ×2 (02:27→05:44)
[2025-06-27 03:23] VITALS: BP 148/85
[2025-06-27] MEDS: LR 1000 IV (03:34)
[2025-06-27] MEDS: ZOSYN IV ×2 (03:43→16:00)
--- NOTE | 2025-06-27 03:48 | PTCARENOTE ---
This RN went to give 0400 Zosyn to pt. Patient asked if he could refuse this dose due to new onset of itchiness that he noticed developing on his back, and arms. States that it is mild, but he looked up the medication and saw that itchiness is one
of the main side effects. Patient has no rash, no swelling, no redness. No difficult breathing and/or swallowing. Declined any Benadryl. Patient used hygiene wipes to clean body. Patient stated he will try the 1000 dose today. VSS. Call mehta is
within reach.
[2025-06-27 06:50] LABS: Hematocrit 38.5 % (39.0-52.0); Hemoglobin 13.8 g/dL (13.0-18.0); Mean Corp Hgb Conc. 35.8 g/dL (33.0-37.0); Mean Corpuscular Volume 85.4 fL (80.0-94.0); Platelet Count 297 10^3/uL (130-400); Red Cell Dist. Width 12.5 % (11.5-14.5)
[2025-06-27 06:56] LABS: ALT (SGPT) 22 U/L (0-50); AST (SGOT) 27 U/L (17-59); Albumin 4.6 g/dl (3.5-5.0); Alkaline Phosphatase 69 U/L (38-126); Blood Urea Nitrogen 13 mg/dl (9-20); Calcium 9.1 mg/dl (8.4-10.2); Carbon Dioxide 32 mmol/L (22-30); Chloride 99 mmol/L (98-107); Estimated Creatinine Clearance 88 ml/min; Glucose 84 mg/dl (70-99); Potassium 3.6 mmol/L (3.5-5.1); Sodium 138 mmol/L (135-145); Total Protein 7.4 g/dl (6.3-8.2); eGFR > 60.00
[2025-06-27 07:00] VITALS: BP 163/86
[2025-06-27] MEDS: TRANDATE 300 MG PO (08:16)
[2025-06-27] MEDS: THERAGRAN 1 TABLET PO (08:16)
--- NOTE | 2025-06-27 10:27 | W.PN.GI.CBS2 ---
Today's Communication / Plan
-
Clear liquid diet
Assessment / Plan
-
69 yo with hx HTN, v-fib arrest ? tramadol related with prior AICD then removal (leads still in place unable to have MRI), hx colon polyp with post polypectomy bleeding 2002, massive GI bleed 04/03/2023 (8 units packed red blood cells) no clear
source found. Had multiple endoscopies, small bowel endoscopy, empiric IR embolization of gastric artery, EGD 04/03/2025 showed large adherent clot unable to stop bleeding, after GDA was embolization, superficial gastric ulcers, chronic neck pain,
multiple episodes of diverticulitis (roughly 8 attacks) in the descending sigmoid colon last one being 05/14/2025 who returns to the emergency room with recurrent left lower quadrant pain. We are asked to evaluate for the same. CT abdomen and
pelvis with IV contrast only shows persistent acute uncomplicated diverticulitis of the distal descending/proximal sigmoid colon. Slightly prominent CBD (8 mm). Cholelithiasis. Patient did have an elevated lipase initially which has returned to
normal. Initial LFTs completely within normal limits. Today has an increase in total bilirubin. Was not fractionated. No upper GI complaints. Patient cannot have an MRI secondary to retained AICD leads. Has not been able to follow-up with
colorectal surgery to discuss elective colon resection from the last episode of diverticulitis hospitalized 6 weeks ago.
Impression:
Recurrent acute diverticulitis, distal descending/proximal sigmoid colon.
Prominent CBD (8 mm)
Elevated lipase, resolved
Cholelithiasis
History of superficial gastric ulcers, massive GI bleed (03/2023) no clear source found-> multiple endoscopic procedures empiric IR GDA embolization, transfer to [facility]-> repeat endoscopy and colonoscopy 10/2023
Hepatic steatosis on imaging
Hypertension
Plan:
- Continue antibiotics, currently on Zosyn and can switch to Augmentin at the time of DC
- Pain is improving will start him on clear liquid diet
-Will follow-up with Dr. Pepe as outpatient to discuss elective resection given multiple episodes of recurrent acute diverticulitis
- Elevated lipase level on admission which normalized on repeat, doubt pancreatitis and he does have gallstones but no cholecystitis noted on ultrasound. mildly dilated CBD of 8 mm but LFTs with only elevated bilirubin indirect most likely has
Gilbert syndrome. Patient cannot get MRI.
Subjective
Subjective
Date of Service: June 27, 2025
He had a bowel movement yesterday which was brown, abdominal pain is improving, afebrile, WBC count is normal today
Objective
Data Reviewed
Laboratory Data:
Laboratory Results
06/27/25 05:46
06/27/25 05:46
Laboratory Results
Total Bilirubin 1.7 mg/dl (0.2-1.3) H 06/27/25 05:46
AST 27 U/L (17-59) 06/27/25 05:46
ALT 22 U/L (0-50) 06/27/25 05:46
Alkaline Phosphatase 69 U/L (38-126) 06/27/25 05:46
Lipase 46 U/L (23-300) 06/26/25 07:57
Vital Signs and I&O:
Vital Signs
Temp Pulse Resp BP Pulse Ox
98.1 F 64 12 163/68 96
06/27/25 07:00 06/27/25 08:16 06/27/25 07:00 06/27/25 08:16 06/27/25 07:00
I&O
06/26/25 06/27/25 06/28/25
06:59 06:59 06:59
Intake Total 0 / 0 1100 / 1100
Balance 0 / 0 1100 / 1100
Physical Exam
Physical Exam
Cardiology: Normal Sinus Rhythm
Pulmonary: Clear
GI: Soft, Non Distended, Tender (Mild left lower quadrant tenderness) and Normal Bowel Sounds
[2025-06-27] MEDS: ZOSYN 50 IV (10:34)
[2025-06-27 11:00] VITALS: BP 158/77
--- NOTE | 2025-06-27 12:58 | W.PN.HOSP.TC ---
Today's Communication/Plan
-
Chronically liquid diet
Continue antibiotics
Assessment / Plan
Assessment / Plan
HPI: 69-year-old male with history of hypertension, recent diverticulitis, V-Fib Arrest s/p ICD, presented to the ED with severe left lower quadrant pain that felt similar to previous acute diverticulitis.
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 He denied to significant epigastric or RUQ abd pain.
He denies fever, chills, nausea, vomiting, recent travel, sick contact.
CT abdomen/pelvis:
1. Persistent acute uncomplicated diverticulitis of the distal descending/proximal sigmoid colon, similar to prior.
2. Slightly prominent common bile duct. Consider outpatient workup with dedicated MRCP, as clinically indicated.
3. Cholelithiasis.
4. Hepatic steatosis.
A/P:
# Recurrent diverticulitis
-recurrent acute diverticulitis more than 8 episodes -not seen by CRS outpatient yet. Will need to follow-up for discussions of elective resection with Dr. Pepe
Improving
Continue Zosyn, Augmentin on discharge
Pain control with IV Dilaudid PRN
Trial CLD
# Elevated Lipase
-doubt biliary pancreatitis as per GI
-Lipase normalized
-Does have gallstones and minimal CBF dilation but no obvious stone;
-Unable to obtain MRI due to ICD leads
-Abd US�slightly distended, bile duct, 8 mm, no obvious acute abnormalities
#Elevated bilirubin
-likely Gilbert Syndrome
-ctm
# Essential hypertension
Hold indapamide. Recommend completely stopping the medication and switch to a different class. High risk of pancreatitis with thiazide diuretics.
Continue labetalol
Full code
Lovenox SQ
Anticipated Discharge: 24 - 48 hours
Subjective/Interval History
-
Date of Service: June 27, 2025
Tenderness still present although improving, trial liquid diet
Objective Data
-
Labs:
Laboratory Results
06/27/25
05:46
WBC 6.6
Hgb 13.8
Hct 38.5 L
Plt Count 297
Sodium 138
Potassium 3.6
Chloride 99
Carbon Dioxide 32 H
BUN 13
Creatinine 0.9
Glucose 84
Calcium 9.1
Total Bilirubin 1.7 H
AST 27
ALT 22
Alkaline Phosphatase 69
Vital Signs:
Vital Signs
Temp Pulse Resp BP Pulse Ox
97.7 F 62 12 158/77 96
06/27/25 11:00 06/27/25 11:00 06/27/25 11:00 06/27/25 11:00 06/27/25 11:00
I&O
06/26/25 06/27/25 06/28/25
06:59 06:59 06:59
Intake Total 0 / 0 1100 / 1100
Balance 0 / 0 1100 / 1100
Review of Systems
-
History Source: Patient
All other systems: Not reviewed unless documented
Data Reviewed
-
Total Time Spent with Patient (in minutes): 42
CT Scan: Report Reviewed by me
Labs: Labs Reviewed by me
[2025-06-27 15:00] VITALS: BP 164/82
[2025-06-27] MEDS: LOVENOX SC (18:10)
--- NOTE | 2025-06-27 18:13 | PTCARENOTE ---
At 1645 Pt stated that he would like to leave AMA. Dr. Ward was made aware. The ama issue has been back in forth with patient during the shift. Pt agreed originally to stay until tomorrow but then changed his mind. Contacted Cross Cover
Physician regarding the AMA paperwork. Pt's IV removed. Pt refused last dose of IV antibiotic. Pt left AMA at 18:00
== END 2025-06-27 18:20 | disposition left against medical advice (07) | DRG 392 ==
LOC: 4 EAST ACU 16:59
PROVIDERS: Nurse Practitioner; Student in an Organized Health Care Education/Training Program; ADMITTING PHYSICIAN Internal Medicine; ATTENDING PHYSICIAN Internal Medicine; CONSULT PHYSICIAN Internal Medicine Gastroenterology; EMERGENCY PHYSICIAN Emergency Medicine; FAMILY PHYSICIAN Family Medicine
DX: K57.32 Diverticulitis of large intestine without perforation or abscess without bleeding (principal); I10 Essential (primary) hypertension; K64.8 Other hemorrhoids; K63.5 Polyp of colon; K80.20 Calculus of gallbladder without cholecystitis without obstruction; K76.0 Fatty (change of) liver, not elsewhere classified
CPT/HCPCS: 74177; 76705; 80053; 81003; 82248; 83690; 85025; 85027; 96361; 96365; 96375; 96376; 99284; Q9967